=== PATIENT | female | born 1940 ===

== ENCOUNTER 2016-11-20 15:23 | Emergency (ER) | payer MEDICARE, BC ==
[2016-11-20 15:57] VITALS: BMI 39.8
--- NOTE | 2016-11-20 16:37 | ED PDOC ---
HPI: General Adult Time Seen by Provider: 11/20/16 15:56 Chief Complaint (Nursing): Abnormal Labs History Per: Patient History/Exam Limitations: no limitations Current Symptoms Are (Timing): Better Additional Complaint(s): Patient is a 76-year-old female, who is called back to the emergency department for high band neutrophil count. patient was seen in ER today (06:00) for nausea/ vomiting and diarrhea. She was discharged this morning for f/u with PMD. Patients labs returned, and were found to have a high band ct, resulting in her being called, and asked to return to ER for re-evaluation/possible admission. Patient states her symptoms have resolved, and she feels well. No other complaints at this time. Past Medical History Reviewed: Historical Data, Nursing Documentation, Vital Signs Vital Signs: Last Vital Signs Temp 97.6 F 11/20/16 16:37 Pulse 78 11/20/16 16:37 Resp 19 11/20/16 16:37 BP 128/76 11/20/16 16:37 Pulse Ox 96 11/20/16 18:03 - Family History Family History: States: Unknown Family Hx - Home Medications Home Medications: Ambulatory Orders Medication Instructions Recorded Anastrozole [Arimidex 1 mg Tab] 1 mg PO DAILY 11/20/16 Ciprofloxacin [Cipro] 500 mg PO Q12 11/20/16 metroNIDAZOLE [Flagyl] 500 mg PO Q8 11/20/16 - Allergies Allergies/Adverse Reactions: Allergies Allergy/AdvReac Type Severity Reaction Status Date / Time Penicillins Allergy RASH Verified 11/20/16 05:52 Review of Systems ROS Statement: Except As Marked, All Systems Reviewed And Found Negative Constitutional: Negative for: Fever, Chills Cardiovascular: Negative for: Chest Pain, Palpitations Respiratory: Negative for: Cough, Shortness of Breath Gastrointestinal: Negative for: Nausea, Vomiting, Abdominal Pain, Diarrhea Musculoskeletal: Negative for: Back Pain Skin: Negative for: Rash Physical Exam - Reviewed Nursing Documentation Reviewed: Yes Vital Signs Reviewed: Yes - Physical Exam Comments: Constitutional: No acute distress. Head: Normocephalic. Atraumatic. Eyes: PERRL. EOMI. ENT: Moist mucous membranes. Neck: Supple. Cardiovascular: Regular rate. Radial pulses 2+ bilaterally. Chest: No tenderness. Respiratory: Clear to auscultation bilaterally. GI: Soft. Nontender. Nondistended. No rebound or guarding. Back: No CVA tenderness. Musculoskeletal: No tenderness or swelling of extremities. Skin: No rash. Neurologic: Alert, no focal deficit. - Laboratory Results Result Diagrams: 11/20/16 16:40 11/20/16 16:40 - ECG O2 Sat by Pulse Oximetry: 96 Medical Decision Making Medical Decision Making: Impression: Patient is requesting repeat labs Prior Visits Notes and records from previous records were reviewed. Patient seen in ER this morning for GI distress. Patient discharged at 11:00. Plan: * CMP * CBC * Reassess and Disposition Scribe Attestation: Documented by Javi Allison acting as a scribe for Terrence Neri MD. Provider Attestation: All medical record entries made by the Scribe were at my direction and personally dictated by me. I have reviewed the chart and agree that the record accurately reflects my personal performance of the history, physical exam, medical decision making, and the department course for this patient. I have also personally directed, reviewed, and agree with the discharge instructions and disposition. Patient appears very well with normal vital signs and no abdominal tenderness. Repeated labs, leukocytosis improving, bicarb normal. Bands down to 6 from 12. Will discharge home, continue PO fluids, f/u PMD, return to ER for worsening pain, fever, vomiting, dyspnea. Disposition - Clinical Impression Clinical Impression: Vomiting and diarrhea - Patient ED Disposition Is Patient to be Admitted: No - Disposition Disposition: Routine/Home Disposition Time: 18:38 Condition: STABLE Instructions: Gastroenteritis (ED)
[2016-11-20 16:39] VITALS: BP 128/76; PULSE 78
[2016-11-20 16:53] LABS: BASO % 0.2 % (0.0-2.0); EOS % 0.3 % (0.0-4.0); HEMATOCRIT 35.8 % (34.0-47.0); LYMPH # 1.1 K/uL (1.0-4.3); LYMPH % 9.2 % (20.0-40.0); MEAN CELL VOLUME 75.3 fl (81.0-99.0); MEAN CORPUSCULAR HEMOGLOBIN 23.8 pg (27.0-31.0); MEAN CORPUSCULAR HGB CONC 31.6 g/dL (33.0-37.0); MEAN PLATELET VOLUME 9.7 fl (7.2-11.7); MONO # 0.6 K/uL (0.0-0.8); MONO % 5.1 % (0.0-10.0); NEUT # 9.8 K/uL (1.8-7.0); NEUT % 85.2 % (50.0-75.0); NRBC % 0.1 % (0.0-0.0); PLATELET COUNT 234 K/uL (130-400); RED CELL DISTRIBUTION WIDTH 16.2 % (11.5-14.5); WHITE BLOOD COUNT 11.5 K/uL (4.8-10.8)
[2016-11-20 16:59] LABS: ALB/GLOB RATIO 1.4 (1.0-2.1); ALKALINE PHOSPHATASE 90 U/L (38-126); ALT/SGPT 22 U/L (9-52); AST/SGOT 24 U/L (14-36); BILIRUBIN,TOTAL 0.5 mg/dl (0.2-1.3); BLOOD UREA NITROGEN 16 mg/dl (7-17); CALCIUM 8.6 mg/dL (8.4-10.2); CARBON DIOXIDE 22 mmol/L (22-30); CHLORIDE 105 mmol/L (98-107); GFR AFRICAN-AMERICAN > 60; GLUCOSE,RANDOM 106 mg/dL (65-105); SODIUM 139 mmol/l (132-148); TOTAL PROTEIN 6.5 G/DL (6.3-8.2)
[2016-11-20 18:31] LABS: MYELOCYTE 1 % (0-0); NEUTROPHIL 81 % (42-75); REACTIVE LYMPHOCYTES 2 % (0-0); TOTAL CELLS COUNTED 100
[2016-11-20 18:59] VITALS: RESP 20; TEMP 97.8; O2SAT 98
== END 2016-11-20 18:58 | disposition home or self-care (01) ==
LOC: H.ER 15:23
DX: R11.2 Nausea with vomiting, unspecified (principal); D72.829 Elevated white blood cell count, unspecified; R19.7 Diarrhea, unspecified
CPT/HCPCS: 80053; 82728; 83690; 85025; 85027; 96361; 96374; 99281; 99285; J2405; J7040

== ENCOUNTER 2017-09-12 07:47 | Emergency (ER) | payer MEDICARE, BC ==
[2017-09-12 07:47] VITALS: BMI 39.8
[2017-09-12 07:56] VITALS: RESP 20; TEMP 98; O2SAT 98
[2017-09-12] MEDS ORDERED: Sodium Chloride 0.9% 1,000 ML IV STA (08:16)
--- NOTE | 2017-09-12 08:20 | ED PDOC ---
HPI: Abdomen Time Seen by Provider: 09/12/17 08:02 Chief Complaint (Nursing): Abdominal Pain Chief Complaint (Provider): Abdominal Pain History Per: Patient History/Exam Limitations: no limitations Onset/Duration Of Symptoms: Days (x3), Intermittent Episodes Current Symptoms Are (Timing): Still Present Location Of Pain/Discomfort: Suprapubic Associated Symptoms: Nausea. denies: Fever, Vomiting, Diarrhea, Constipation, Urinary Symptoms (vaginal bleeding or discharge, dysuria) Additional Complaint(s): Deanna Oconnor is a 77 year old female, with a past medical history of breast CA, right mastectomy, and cholecystectomy, who presents to the emergency department complaining of intermittent lower abdominal pain associated with nausea onset for x3 days. She denies any fever, vomit, constipation, diarrhea, dysuria, vaginal bleeding or discharge. No further medical complaints. PMD: Michael Cotter Past Medical History Reviewed: Historical Data, Nursing Documentation, Vital Signs Vital Signs: Last Vital Signs Temp 98 F 09/12/17 07:53 Pulse 80 09/12/17 07:53 Resp 20 09/12/17 07:53 BP 111/84 09/12/17 07:53 Pulse Ox 98 09/12/17 08:31 - Medical History Other PMH: breast CA - Surgical History Surgical History: Cholecystectomy Other surgeries: right mastectomy - Family History Family History: States: Unknown Family Hx - Social History Current smoker - smoking cessation education provided: No Alcohol: None Drugs: Denies - Home Medications Home Medications: Ambulatory Orders Medication Instructions Recorded Dicyclomine [Bentyl] 20 mg PO QID PRN #10 tab 09/12/17 - Allergies Allergies/Adverse Reactions: Allergies Allergy/AdvReac Type Severity Reaction Status Date / Time Penicillins Allergy RASH Verified 11/20/16 05:52 Review of Systems ROS Statement: Except As Marked, All Systems Reviewed And Found Negative Constitutional: Negative for: Fever Gastrointestinal: Positive for: Nausea, Abdominal Pain (intermittent, lower). Negative for: Vomiting, Diarrhea, Constipation Genitourinary Female: Negative for: Dysuria, Vaginal Discharge, Vaginal Bleeding Physical Exam - Reviewed Nursing Documentation Reviewed: Yes Vital Signs Reviewed: Yes - Physical Exam Appears: Positive for: Well (morbidly obese), No Acute Distress Head Exam: Positive for: ATRAUMATIC, NORMAL INSPECTION, NORMOCEPHALIC Skin: Positive for: Normal Color, Warm, Dry Eye Exam: Positive for: EOMI, Normal appearance, PERRL Neck: Positive for: Normal, Painless ROM, Supple Cardiovascular/Chest: Positive for: Regular Rate, Rhythm. Negative for: Murmur Respiratory: Positive for: Normal Breath Sounds. Negative for: Respiratory Distress Gastrointestinal/Abdominal: Positive for: Tenderness (bilateral lower quadrant and suprapubic ). Negative for: Guarding, Rebound Back: Positive for: Normal Inspection. Negative for: L CVA Tenderness, R CVA Tenderness Extremity: Positive for: Normal ROM. Negative for: Pedal Edema, Deformity, Swelling Neurologic/Psych: Positive for: Alert, Oriented - Laboratory Results Result Diagrams: 09/12/17 08:15 09/12/17 08:15 - ECG O2 Sat by Pulse Oximetry: 98 (RA) Pulse Ox Interpretation: Normal Medical Decision Making Medical Decision Making: Initial Impression: UTI, appendicitis, ovarian cysts. Initial Plan: --Abd & Pelvis IV Contrast [CT] --ECG --Comp Metabolic Panel --Urine dipstick --PTT --PT --NS IV 1,000 ml @ 125 mls/hr --Zofran Inj 4 mg IV --Urinalysis --reevaluation Pt refused CT scan. Went to [employer] and ate food. Scribe Attestation: Documented by Johnny Laguna, acting as a scribe for Sindi Crow MD Provider Scribe Attestation: All medical record entries made by the Scribe were at my direction and personally dictated by me. I have reviewed the chart and agree that the record accurately reflects my personal performance of the history, physical exam, medical decision making, and the department course for this patient. I have also personally directed, reviewed, and agree with the discharge instructions and disposition. Disposition - Clinical Impression Clinical Impression: Abdominal pain in female - Disposition Referrals: Michael Cotter MD [Family Provider] - Condition: STABLE Prescriptions: Dicyclomine [Bentyl] 20 mg PO QID PRN #10 tab PRN Reason: Pain, Moderate (4-7) Instructions: Acute Abdominal Pain (ED) Forms: [employer] (Hong Konger)
[2017-09-12 08:25] LABS: BASO % 0.5 % (0.0-2.0); EOS # 0.2 K/uL (0.0-0.7); HEMATOCRIT 38.9 % (34.0-47.0); LYMPH # 1.7 K/uL (1.0-4.3); LYMPH % 18.2 % (20.0-40.0); MEAN CELL VOLUME 74.7 fl (81.0-99.0); MEAN CORPUSCULAR HEMOGLOBIN 24.2 pg (27.0-31.0); MEAN CORPUSCULAR HGB CONC 32.3 g/dL (33.0-37.0); MEAN PLATELET VOLUME 8.4 fl (7.2-11.7); MONO # 0.6 K/uL (0.0-0.8); MONO % 5.9 % (0.0-10.0); NEUT % 73.4 % (50.0-75.0); NRBC % 0.1 % (0.0-0.0); RED CELL DISTRIBUTION WIDTH 16.8 % (11.5-14.5); WHITE BLOOD COUNT 9.5 K/uL (4.8-10.8)
[2017-09-12 08:40] LABS: PARTIAL THROMBOPLASTIN TIME 26.2 Seconds (25.6-37.1)
[2017-09-12 08:43] LABS: ALB/GLOB RATIO 1.3 (1.0-2.1); ALKALINE PHOSPHATASE 92 U/L (38-126); ALT/SGPT 40 U/L (9-52); AST/SGOT 22 U/L (14-36); BILIRUBIN,TOTAL 0.4 mg/dl (0.2-1.3); BLOOD UREA NITROGEN 13 mg/dl (7-17); CALCIUM 9.4 mg/dL (8.4-10.2); CARBON DIOXIDE 23 mmol/L (22-30); CHLORIDE 105 mmol/L (98-107); GFR AFRICAN-AMERICAN > 60; GLUCOSE,RANDOM 135 mg/dL (65-105); SODIUM 139 mmol/l (132-148); TOTAL PROTEIN 6.9 G/DL (6.3-8.2)
[2017-09-12] MEDS ORDERED: Iohexol 300 100 ML IJ ONE (09:07)
[2017-09-12 09:16] LABS: RBC URINE 1 /hpf (0-3); URINE BILIRUBIN NEGATIVE (NEGATIVE); URINE BLOOD NEGATIVE (NEGATIVE); URINE COLOR YELLOW (YELLOW); URINE GLUCOSE (UA) NEG (Normal); URINE KETONE NEGATIVE (NEGATIVE); URINE LEUKOCYTE ESTERASE NEG Leu/uL (Negative); URINE PROTEIN 30 mg/dL (NEGATIVE); URINE UROBILINOGEN 0.2-1.0 mg/dL (0.2-1.0); WBC URINE 1 /hpf (0-5)
[2017-09-12 11:52] VITALS: BP 120/70; PULSE 78
--- NOTE | 2017-09-13 00:19 | CARD ---
APPROVED REPORT EKG Measurement Heart [id number] 146P-9 [id number] <Conclusion> Normal sinus rhythm Left axis deviation Abnormal ECG
== END 2017-09-12 12:24 | disposition home or self-care (01) ==
LOC: H.ER 07:47
DX: R10.2 Pelvic and perineal pain (principal); Z85.3 Personal history of malignant neoplasm of breast; Z88.0 Allergy status to penicillin
CPT/HCPCS: 80053; 81003; 85025; 85610; 85730; 93005; 96361; 96374; 99283; J2405; J7040; Q9967

== ENCOUNTER 2018-08-01 19:58 | Emergency (ER) | payer MEDICARE, BC ==
[2018-08-01 19:58] VITALS: BMI 39.8
[2018-08-01 20:01] VITALS: BP 147/98; PULSE 80; RESP 16; TEMP 97.9; O2SAT 99
--- NOTE | 2018-08-01 21:29 | ED PDOC ---
HPI: Psych/Substance Abuse Time Seen by Provider: 08/01/18 20:04 Chief Complaint (Nursing): Psychiatric Evaluation Chief Complaint (Provider): psychiatric evaluation History Per: Patient History/Exam Limitations: no limitations Onset/Duration Of Symptoms: Hrs (today) Additional Complaint(s): Ana Oconnor is a 78 year old female, with a past medical history of Alzheimer's disease, who was brought to the emergency department at the request of her friend who state she became agitated at home and was behaving somewhat paranoid. She was given an extra dose of Lorazepam which she takes TID. On arrival to ED patient was calm and cooperative but resentful at being made to come to the hospital. She denies any other medical complaints. PMD: Michael Cotter Neurologist: Dr. Barrios Past Medical History Reviewed: Historical Data, Nursing Documentation, Vital Signs Vital Signs: Last Vital Signs Temp 97.9 F 08/01/18 20:00 Pulse 80 08/01/18 20:00 Resp 16 08/01/18 20:00 BP 147/98 H 08/01/18 20:00 Pulse Ox 99 08/01/18 20:00 - Medical History PMH: Alzheimer's Disease Denies: HTN, Hypercholesterolemia - Surgical History Surgical History: Cholecystectomy - Family History Family History: States: Unknown Family Hx - Social History Current smoker - smoking cessation education provided: No Alcohol: None Drugs: Denies - Home Medications Home Medications: Ambulatory Orders Medication Instructions Recorded Dicyclomine [Bentyl] 20 mg PO QID PRN #10 tab 09/12/17 - Allergies Allergies/Adverse Reactions: Allergies Allergy/AdvReac Type Severity Reaction Status Date / Time Penicillins Allergy RASH Verified 11/20/16 05:52 Review of Systems ROS Statement: Except As Marked, All Systems Reviewed And Found Negative Physical Exam - Reviewed Nursing Documentation Reviewed: Yes Vital Signs Reviewed: Yes - Physical Exam Appears: Positive for: No Acute Distress Head Exam: Positive for: ATRAUMATIC, NORMAL INSPECTION, NORMOCEPHALIC Skin: Positive for: Normal Color, Warm, Dry Eye Exam: Positive for: Normal appearance, EOMI, PERRL ENT: Positive for: Normal ENT Inspection Neck: Positive for: Painless ROM, Supple Cardiovascular/Chest: Positive for: Regular Rate, Rhythm. Negative for: Murmur Respiratory: Positive for: Normal Breath Sounds. Negative for: Respiratory Distress Gastrointestinal/Abdominal: Positive for: Normal Exam, Soft. Negative for: Tenderness Back: Positive for: Normal Inspection. Negative for: L CVA Tenderness, R CVA Tenderness, Vertebral Tenderness Extremity: Positive for: Normal ROM (upper and lower extremities). Negative for: Deformity, Swelling Neurologic/Psych: Positive for: Alert, Oriented. Negative for: Motor/Sensory Deficits - ECG O2 Sat by Pulse Oximetry: 99 (RA) Pulse Ox Interpretation: Normal Medical Decision Making Medical Decision Making: Time: 20:04 Initial Impression: 78 y/o female with an episode of agitation in setting of Alzheimer's disease Initial Plan: --Crisis evaluation --Reevaluation 22:58 --Patient was evaluated by crisis and is cleared for discharge. Diagnosis is dementia. ----- Scribe Attestation: Documented by Johnny Laguna, acting as a scribe for Baldev Castillo MD. Provider Scribe Attestation: All medical record entries made by the Scribe were at my direction and personally dictated by me. I have reviewed the chart and agree that the record accurately reflects my personal performance of the history, physical exam, medical decision making, and the department course for this patient. I have also personally directed, reviewed, and agree with the discharge instructions and disposition. Disposition - Clinical Impression Clinical Impression: Dementia - Patient ED Disposition Is Patient to be Admitted: No - Disposition Disposition: Routine/Home Disposition Time: 22:58 Condition: STABLE Additional Instructions: ANA OCONNOR, thank you for letting us take care of you today. Your provider was Baldev Castillo MD and you were treated for PSYCH EVAL. The emergency medical care you received today was directed at your acute symptoms. If you were prescribed any medication, please fill it and take as directed. It may take several days for your symptoms to resolve. Return to the Emergency Department if your symptoms worsen, do not improve, or if you have any other problems. Please contact your doctor or call one of the physicians/clinics you have been referred to that are listed on the Patient Visit Information form that is included in your discharge packet. Bring any paperwork you were given at discharge with you along with any medications you are taking to your follow up visit. Our treatment cannot replace ongoing medical care by a primary care provider outside of the emergency department. Thank you for allowing the [facility] team to be part of your care today. If you had an X-Ray or CT scan: A Radiologist will review the ED reading if any change in treatment is needed we will contact you. If you had a blood, urine, or wound culture: It will take several days for the results, if any change in treatment is needed we will contact you. If you had an STI test: It will take 48 hours for the results. Please call after 1 week if you have not heard back. Instructions: Dementia (Including Alzheimer Disease) Forms: [employer] (Jordanian)
== END 2018-08-01 23:02 | disposition home or self-care (01) ==
LOC: H.ER 19:58
DX: F02.80 Dementia in other diseases classified elsewhere, unspecified severity, without behavioral disturbance, psychotic disturbance, mood disturbance, and anxiety (principal); G30.9 Alzheimer's disease, unspecified; Z88.0 Allergy status to penicillin

== ENCOUNTER 2018-09-06 10:31 | Inpatient (IN) | payer MEDICARE, BC ==
[2018-09-06 10:48] VITALS: BMI 31.8
--- NOTE | 2018-09-06 11:07 | ED PDOC ---
HPI: General Adult Time Seen by Provider: 09/06/18 10:41 History Per: Other Onset/Duration Of Symptoms: Other (1 month) Current Symptoms Are (Timing): Intermittent Episodes Severity: Moderate Additional Complaint(s): Referred by PMD for intermittent episodes of confusion and violent behavior. Pt has no recollection of events. Seen by PMD with w/u including CT nl. Started on Keppra but no improvement. Denies headaches weakness, no witnessed seizures Past Medical History Vital Signs: Last Vital Signs Temp 98.4 F 09/06/18 10:49 Pulse 85 09/06/18 10:49 Resp 17 09/06/18 10:49 BP 127/71 09/06/18 10:49 Pulse Ox 96 09/06/18 10:49 - Medical History PMH: Alzheimer's Disease Denies: Diabetes, Hepatitis, HIV, HTN, Hypercholesterolemia, Seizures, Sexually Transmitted Disease - Surgical History Surgical History: Cholecystectomy - Family History Family History: States: Unknown Family Hx - Home Medications Home Medications: Ambulatory Orders Medication Instructions Recorded LORazepam [Ativan] 0.5 mg PO Q8 09/06/18 levETIRAcetam [Keppra] 250 mg PO HS 09/06/18 - Allergies Allergies/Adverse Reactions: Allergies Allergy/AdvReac Type Severity Reaction Status Date / Time Penicillins Allergy RASH Verified 11/20/16 05:52 Review of Systems ROS Statement: Except As Marked, All Systems Reviewed And Found Negative Neurological: Positive for: Confusion, Altered Mental Status Physical Exam - Reviewed Nursing Documentation Reviewed: Yes Vital Signs Reviewed: Yes - Physical Exam Appears: Positive for: Non-toxic, No Acute Distress Head Exam: Positive for: ATRAUMATIC, NORMAL INSPECTION, NORMOCEPHALIC Skin: Positive for: Normal Color, Warm, DRY Eye Exam: Positive for: EOMI, Normal appearance, PERRL ENT: Positive for: Normal ENT Inspection Neck: Positive for: Normal, Painless ROM Cardiovascular/Chest: Positive for: Regular Rate, Rhythm Respiratory: Positive for: CNT, Normal Breath Sounds Gastrointestinal/Abdominal: Positive for: Normal Exam, Soft Back: Positive for: Normal Inspection Extremity: Positive for: Normal ROM Neurologic/Psych: Positive for: Alert, Oriented - Laboratory Results Result Diagrams: 09/06/18 11:56 09/06/18 11:56 - ECG O2 Sat by Pulse Oximetry: 96 Disposition - Clinical Impression Clinical Impression: Dementia, Altered mental status - Patient ED Disposition Is Patient to be Admitted: Yes - Disposition Disposition Time: 11:13 Condition: FAIR - Pt Status Changed To: Hospital Disposition Of: Observation - POA Present On Arrival: None
[2018-09-06 12:09] LABS: BASO # 0.1 K/uL (0.0-0.2); BASO % 0.6 % (0.0-2.0); EOS # 0.4 K/uL (0.0-0.7); EOS % 3.8 % (0.0-4.0); HEMOGLOBIN 12.3 g/dL (12.0-16.0); LYMPH # 2.2 K/uL (1.0-4.3); LYMPH % 21.8 % (20.0-40.0); MEAN CELL VOLUME 77.3 fl (81.0-99.0); MEAN CORPUSCULAR HGB CONC 32.4 g/dL (33.0-37.0); MEAN PLATELET VOLUME 9.6 fl (7.2-11.7); MONO # 0.6 K/uL (0.0-0.8); MONO % 5.8 % (0.0-10.0); NEUT # 6.9 K/uL (1.8-7.0); NRBC % 0.2 % (0.0-0.0); RBC 4.91 Mil/uL (3.80-5.20); RED CELL DISTRIBUTION WIDTH 15.5 % (11.5-14.5); WHITE BLOOD COUNT 10.1 K/uL (4.8-10.8)
[2018-09-06 12:16] LABS: SQUAMOUS EPITHIAL 6 /hpf (0-5); URINE BILIRUBIN NEGATIVE (NEGATIVE); URINE BLOOD NEGATIVE (NEGATIVE); URINE CLARITY SLIGHTY-CLOUDY (Clear); URINE COLOR YELLOW (YELLOW); URINE GLUCOSE (UA) NEG (Normal); URINE HYALINE CAST 0-2 /hpf (0-2); URINE LEUKOCYTE ESTERASE SMALL Leu/uL (Negative); URINE PROTEIN NEGATIVE (NEGATIVE); URINE UROBILINOGEN 0.2-1.0 mg/dL (0.2-1.0)
[2018-09-06 12:19] LABS: ALB/GLOB RATIO 1.4 (1.0-2.1); ALBUMIN 3.7 g/dL (3.5-5.0); ALT/SGPT 32 U/L (9-52); AST/SGOT 21 U/L (14-36); BLOOD UREA NITROGEN 16 mg/dl (7-17); CALCIUM 9.1 mg/dL (8.4-10.2); GFR NON-AFRICAN AMERICAN > 60
[2018-09-06] MEDS ORDERED: Tmp-Smz 800 mg-160 mg DS Tab PO STA (12:22)
[2018-09-06 13:16] LABS: BARBITURATES, UR NEGATIVE (NEGATIVE); BENZODIAZEPINES, UR NEGATIVE (NEGATIVE); OPIATES, UR NEGATIVE (NEGATIVE); PHENCYCLIDINE, UR NEGATIVE (NEGATIVE)
[2018-09-06] MEDS ORDERED: Tmp-Smz 800 mg-160 mg DS Tab ONE (13:38)
[2018-09-06 15:46] LABS: T4 10.4 ug/dl (5.5-11.0)
--- NOTE | 2018-09-06 16:14 | MRI ---
Date of service: 09/06/2018 PROCEDURE: MRI BRAIN WITHOUT CONTRAST HISTORY: AMS COMPARISON: None available. TECHNIQUE: Multiplanar, multisequence MR images of the brain were obtained without intravenous contrast enhancement. FINDINGS: HEMORRHAGE: None DWI: No evidence of an acute or early subacute infarction. BRAIN PARENCHYMA: There are mild chronic microangiopathic changes. There is no mass, mass effect or abnormal extra-axial fluid collection. There is no territorial infarction. The midline sagittal structures are normal. VENTRICLES: There is moderate age-related global parenchymal volume loss and proportionate enlargement of the ventricles and cortical sulci. CRANIUM: There is normal bone marrow signal pattern. ORBITS: Grossly unremarkable. PARANASAL SINUSES/MASTOIDS: There is mild mucosal thickening and retention cyst/polyp in the left maxillary sinus with superimposed fluid. The remaining included paranasal sinuses and mastoid air cells are predominantly clear. VASCULAR SYSTEM: There are normal signal voids in the larger intracranial arteries. OTHER FINDINGS: None. IMPRESSION: No acute intracranial abnormality. Mild chronic microangiopathic changes and moderate age-related global parenchymal volume loss. Chronic left maxillary sinusitis. Superimposed fluid may represent acute sinusitis in the appropriate clinical setting. Clinical follow-up is advised.
--- NOTE | 2018-09-06 19:35 | CARD ---
APPROVED REPORT Date of service: 09/06/2018 EKG Measurement Heart [id number] 150P-2 [id number] <Conclusion> Normal sinus rhythm Left axis deviation Incomplete right bundle branch block Minimal voltage criteria for LVH, may be normal variant Abnormal ECG
--- NOTE | 2018-09-06 22:58 | CON ---
DATE: 09/06/2018 NEUROLOGY CONSULTATION REPORT REASON FOR CONSULTATION: Change in mental status. HISTORY OF PRESENTING ILLNESS: The patient is a 78-year-old female with a history of underlying dementia who presents for evaluation of altered mental status. The patient is brought by her friend. As per the friend, the patient has been hallucinating. The patient's friend states that she has been seeing things which are not there. It has been going on for the last few weeks, and now it is getting worse over the last couple of days. The patient denies any headaches. Denies any dizziness. Denies any focal weakness in the arms or legs. Denies use of any new medications. The patient was given Keppra for possible seizure; however, it did not improve her symptoms. The patient denied any other complaints. REVIEW OF SYSTEMS: Denied any headaches, dizziness, chest pain, shortness of breath, abdominal pain, constipation, diarrhea, dysuria, cough, or sputum production. PAST MEDICAL HISTORY: Includes memory issues with dementia. MEDICATIONS: At home include Ativan 0.5 mg three times a day and Keppra 250 mg at nighttime. ALLERGIES: PENICILLIN. SOCIAL HISTORY: Denies smoking, use of alcohol, or illicit drugs. FAMILY HISTORY: Reviewed and noncontributory to the case. PHYSICAL EXAMINATION: GENERAL: The patient is an elderly pleasant female, lying on the bed, in no acute distress. VITAL SIGNS: Her blood pressure is 127/71, heart rate is 85 per minute, breathing at a rate of 16 per minute, and temperature is 98.4 degrees Fahrenheit. HEENT: Normocephalic and atraumatic. NECK: Supple. There are no carotid bruits. LUNGS: Clear. CARDIOVASCULAR SYSTEM: S1 and S2 audible. No murmurs. ABDOMEN: Soft and nontender. Bowel sounds are present. NEUROLOGIC EXAMINATION: Mental status: The patient is awake and alert, oriented to place as hospital, year as 2010, month as June. She knows the name of the President. She follows simple commands. Cranial nerve examination: Pupils are 4 mm bilaterally, reactive to light. Visual escalante are full. Extraocular movements are intact. There is no facial asymmetry. Plantars are downgoing bilaterally and tongue is midline. Motor examination: Tone is normal. Power is 5/5 bilaterally in all extremities. Reflexes are 1+ and symmetric. Cerebellar examination: [id number] shows no dysmetria. Gait is narrow based. LABORATORY DATA: Labs review shows WBC of 10.1, hemoglobin 12.3, and hematocrit of 38, and platelets of 240. Sodium is 139, potassium is 3.8, chloride 108, carbo dioxide content of 23, BUN of 16, creatinine 0.6, and glucose of 161. Her AST and ALT are within normal limits. The patient also had urinalysis, which shows wbc count of 12 and leukocyte esterase small. IMPRESSION: 1. Altered mental status with underlying dementia with possible urinary tract infection. 2. Visual hallucinations. RECOMMENDATIONS: 1. The patient is to have MRI of the brain without contrast. 2. The patient is to have an electroencephalogram. 3. The patient is to have vitamin B12, T4, and TSH levels. 4. The patient is to be started on Aricept 5 mg once a day. 5. The patient is also to be started on low dose of Seroquel with hallucinations. 6. Please continue supportive care and treatment. Thank you for the opportunity to participate in the care of this patient. Tari Andrea MD
--- NOTE | 2018-09-06 23:44 | CP.PCM.HP ---
History of Present Illness - History of Present Illness History of Present Illness: 78 yo admitted for change in mental status Pt has had episodes of erratic behavior. She recently was seen by Neurology as outpt and started on anti seizure medications which pt was unable to tolerate Pt has hx of episodes of amnesia. Ct scan of Head was WNL Present on Admission - Present on Admission Any Indicators Present on Admission: No Past Patient History - Past Social History Smoking Status: Never Smoked - CARDIAC Hx Cardiac Disorders: No Hx Hypercholesterolemia: No Hx Hypertension: No - PULMONARY Hx Respiratory Disorders: No Hx Tuberculosis: No - NEUROLOGICAL Hx Neurological Disorder: Yes Hx Alzheimer's Disease: Yes Hx Seizures: No - HEENT Hx HEENT Problems: No - RENAL Hx Chronic Kidney Disease: No - ENDOCRINE/METABOLIC Hx Endocrine Disorders: No - HEMATOLOGICAL/ONCOLOGICAL Hx Blood Disorders: No Hx Human Immunodeficiency Virus (HIV): No - INTEGUMENTARY Hx Dermatological Problems: No - MUSCULOSKELETAL/RHEUMATOLOGICAL Hx Musculoskeletal Disorders: No Hx Falls: No - GASTROINTESTINAL Hx Gastrointestinal Disorders: No - GENITOURINARY/GYNECOLOGICAL Hx Genitourinary Disorders: No Hx Sexually Transmitted Disorders: No - PSYCHIATRIC Hx Psychophysiologic Disorder: No Hx Substance Use: No - SURGICAL HISTORY Hx Cholecystectomy: Yes - ANESTHESIA Hx Anesthesia: Yes Hx Anesthesia Reactions: No Hx Malignant Hyperthermia: No Meds Allergies/Adverse Reactions: Allergies Allergy/AdvReac Type Severity Reaction Status Date / Time Penicillins Allergy RASH Verified 11/20/16 05:52 Physical Exam - Respiratory Exam Respiratory Exam: NORMAL BREATHING PATTERN - Cardiovascular Exam Cardiovascular Exam: REGULAR RHYTHM - GI/Abdominal Exam GI & Abdominal Exam: Normal Bowel Sounds Results - Vital Signs Recent Vital Signs: Last Vital Signs Temp 98 F 09/06/18 20:54 Pulse 74 09/06/18 22:43 Resp 18 09/06/18 22:43 BP 155/83 H 09/06/18 20:54 Pulse Ox 98 09/06/18 22:43 - Labs Result Diagrams: 09/06/18 11:56 09/06/18 11:56 Labs: Laboratory Results - last 24 hr 09/06/18 09/06/18 09/06/18 11:56 11:56 11:56 WBC 10.1 RBC 4.91 Hgb 12.3 Hct 38.0 MCV 77.3 L D MCH 25.0 L MCHC 32.4 L RDW 15.5 H Plt Count 240 MPV 9.6 Neut % (Auto) 68.0 Lymph % (Auto) 21.8 [place] % (Auto) 5.8 Eos % (Auto) 3.8 Baso % (Auto) 0.6 Neut # (Auto) 6.9 Lymph # (Auto) 2.2 [place] # (Auto) 0.6 Eos # (Auto) 0.4 Baso # (Auto) 0.1 Sodium 139 Potassium 3.8 Chloride 108 H Carbon Dioxide 23 Anion Gap 12 BUN 16 Creatinine 0.6 L Est GFR ( Amer) > 60 Est GFR (Non-Af Amer) > 60 Random Glucose 161 H Calcium 9.1 Total Bilirubin 0.1 L AST 21 ALT 32 Alkaline Phosphatase 92 Total Protein 6.4 Albumin 3.7 Globulin 2.7 Albumin/Globulin Ratio 1.4 Vitamin B12 Thyroxine (T4) TSH 3rd Generation Urine Color Yellow Urine Clarity Slighty-cloudy Urine pH 5.0 Ur Specific [place] 1.026 Urine Protein Negative Urine Glucose (UA) Neg Urine Ketones Negative Urine Blood Negative Urine Nitrate Negative Urine Bilirubin Negative Urine Urobilinogen 0.2-1.0 Ur Leukocyte Esterase Small Urine RBC (Auto) 4 H Urine Microscopic WBC 12 H Ur Squamous Epith Cells 6 H Hyaline Casts 0-2 Urine Opiates Screen Urine Methadone Screen Ur Barbiturates Screen Ur Phencyclidine Scrn Ur Amphetamines Screen U Benzodiazepines Scrn U Oth Cocaine Metabols U Cannabinoids Screen Alcohol, Quantitative < 10 09/06/18 09/06/18 12:40 15:10 WBC RBC Hgb Hct MCV MCH MCHC RDW Plt Count MPV Neut % (Auto) Lymph % (Auto) [place] % (Auto) Eos % (Auto) Baso % (Auto) Neut # (Auto) Lymph # (Auto) [place] # (Auto) Eos # (Auto) Baso # (Auto) Sodium Potassium Chloride Carbon Dioxide Anion Gap BUN Creatinine Est GFR ( Amer) Est GFR (Non-Af Amer) Random Glucose Calcium Total Bilirubin AST ALT Alkaline Phosphatase Total Protein Albumin Globulin Albumin/Globulin Ratio Vitamin B12 690 Thyroxine (T4) 10.4 TSH 3rd Generation 1.76 Urine Color Urine Clarity Urine pH Ur Specific [place] Urine Protein Urine Glucose (UA) Urine Ketones Urine Blood Urine Nitrate Urine Bilirubin Urine Urobilinogen Ur Leukocyte Esterase Urine RBC (Auto) Urine Microscopic WBC Ur Squamous Epith Cells Hyaline Casts Urine Opiates Screen Negative Urine Methadone Screen Negative Ur Barbiturates Screen Negative Ur Phencyclidine Scrn Negative Ur Amphetamines Screen Negative U Benzodiazepines Scrn Negative U Oth Cocaine Metabols Negative U Cannabinoids Screen Negative Alcohol, Quantitative Assessment & Plan - Assessment and Plan (Free Text) Assessment: Mental status changes etiol?? Organic vs fuctional?? Seizure activity?? Transient global Amnesia?? Admit MRI EEG Neurology Psychiatry HX Breast Ca Hx Fe deficiency ??elevated CEA Oncology UTI urine c/s - Date & Time Date: 09/06/18 Time: 22:22
[2018-09-07 06:13] LABS: BASO % 0.5 % (0.0-2.0); EOS # 0.4 K/uL (0.0-0.7); EOS % 4.8 % (0.0-4.0); HEMOGLOBIN 11.9 g/dL (12.0-16.0); LYMPH # 2.7 K/uL (1.0-4.3); LYMPH % 29.5 % (20.0-40.0); MEAN CELL VOLUME 77.8 fl (81.0-99.0); MEAN CORPUSCULAR HEMOGLOBIN 24.6 pg (27.0-31.0); MEAN CORPUSCULAR HGB CONC 31.7 g/dL (33.0-37.0); MEAN PLATELET VOLUME 9.5 fl (7.2-11.7); MONO # 0.6 K/uL (0.0-0.8); MONO % 6.6 % (0.0-10.0); NEUT # 5.3 K/uL (1.8-7.0); NEUT % 58.6 % (50.0-75.0); NRBC % 0.1 % (0.0-0.0); RBC 4.84 Mil/uL (3.80-5.20); RED CELL DISTRIBUTION WIDTH 15.1 % (11.5-14.5)
[2018-09-07 06:25] LABS: LDL CHOLESTEROL 103 mg/dL (0-129)
[2018-09-07 06:45] LABS: ALB/GLOB RATIO 1.3 (1.0-2.1); ALBUMIN 3.3 g/dL (3.5-5.0); ALT/SGPT 39 U/L (9-52); AST/SGOT 17 U/L (14-36); BLOOD UREA NITROGEN 14 mg/dl (7-17); CALCIUM 8.7 mg/dL (8.4-10.2); GFR NON-AFRICAN AMERICAN > 60; HDL CHOLESTEROL 55 MG/DL (30-70)
--- NOTE | 2018-09-07 11:03 | CP.PCM.CON ---
History of Present Illness - History of Present Illness History of Present Illness: This is a 78 yrs old female who was admitted with change in mental status. Pt as some episodes of forgetfulness and occasional violent episodes which are getting worse. She has a h/o breast cancer several yrs ago for which she only had surgery,no RT or chemotherapy. S he has been alright since. Because of this history metastatic disease was suspected and she was started on keppra. Her MRI however only shows some chronic changes, no evidence of metastatic disease. H/o cholecystectomy Past Patient History - Past Social History Smoking Status: Never Smoked - CARDIAC Hx Cardiac Disorders: No Hx Hypercholesterolemia: No Hx Hypertension: No - PULMONARY Hx Respiratory Disorders: No Hx Tuberculosis: No - NEUROLOGICAL Hx Neurological Disorder: Yes Hx Alzheimer's Disease: Yes Hx Seizures: No - HEENT Hx HEENT Problems: No - RENAL Hx Chronic Kidney Disease: No - ENDOCRINE/METABOLIC Hx Endocrine Disorders: No - HEMATOLOGICAL/ONCOLOGICAL Hx Blood Disorders: No Hx Human Immunodeficiency Virus (HIV): No - INTEGUMENTARY Hx Dermatological Problems: No - MUSCULOSKELETAL/RHEUMATOLOGICAL Hx Musculoskeletal Disorders: No Hx Falls: No - GASTROINTESTINAL Hx Gastrointestinal Disorders: No - GENITOURINARY/GYNECOLOGICAL Hx Genitourinary Disorders: No Hx Sexually Transmitted Disorders: No - PSYCHIATRIC Hx Psychophysiologic Disorder: No Hx Substance Use: No - SURGICAL HISTORY Hx Cholecystectomy: Yes - ANESTHESIA Hx Anesthesia: Yes Hx Anesthesia Reactions: No Hx Malignant Hyperthermia: No Meds Allergies/Adverse Reactions: Allergies Allergy/AdvReac Type Severity Reaction Status Date / Time Penicillins Allergy RASH Verified 11/20/16 05:52 - Medications Medications: Current Medications Lorazepam (Ativan) 0.5 mg PO BID [facility] Last Admin: 09/07/18 09:51 Dose: 0.5 mg Memantine (Namenda) 5 mg PO DAILY [facility] Last Admin: 09/07/18 09:52 Dose: 5 mg Montelukast Sodium (Singulair) 10 mg PO HS [facility] Risperidone (Risperdal Tab) 0.5 mg PO BID [facility] Last Admin: 09/07/18 10:00 Dose: 0.5 mg Physical Exam - Additional Findings Additional findings: [id number] exam; Alert well oriented in no acute distress neck; Supple,no adenopathy Chest; lear, no rales or rhonchi Heart; RSR,no murmur Abd; Soft, no mass, no h/s mealy Results - Vital Signs Recent Vital Signs: Last Vital Signs Temp 98.0 F 09/07/18 08:18 Pulse 80 09/07/18 08:18 Resp 20 09/07/18 08:18 BP 110/72 09/07/18 08:18 Pulse Ox 95 09/07/18 08:18 - Labs Result Diagrams: 09/07/18 05:55 09/07/18 05:55 Labs: Laboratory Results - last 24 hr 09/06/18 09/06/18 09/06/18 11:56 11:56 11:56 WBC 10.1 RBC 4.91 Hgb 12.3 Hct 38.0 MCV 77.3 L D MCH 25.0 L MCHC 32.4 L RDW 15.5 H Plt Count 240 MPV 9.6 Neut % (Auto) 68.0 Lymph % (Auto) 21.8 [place] % (Auto) 5.8 Eos % (Auto) 3.8 Baso % (Auto) 0.6 Neut # (Auto) 6.9 Lymph # (Auto) 2.2 [place] # (Auto) 0.6 Eos # (Auto) 0.4 Baso # (Auto) 0.1 Sodium 139 Potassium 3.8 Chloride 108 H Carbon Dioxide 23 Anion Gap 12 BUN 16 Creatinine 0.6 L Est GFR ( Amer) > 60 Est GFR (Non-Af Amer) > 60 Random Glucose 161 H Calcium 9.1 Total Bilirubin 0.1 L AST 21 ALT 32 Alkaline Phosphatase 92 Total Protein 6.4 Albumin 3.7 Globulin 2.7 Albumin/Globulin Ratio 1.4 Triglycerides Cholesterol LDL Cholesterol Direct HDL Cholesterol Carcinoembryonic Ag Vitamin B12 Thyroxine (T4) TSH 3rd Generation Urine Color Yellow Urine Clarity Slighty-cloudy Urine pH 5.0 Ur Specific [place] 1.026 Urine Protein Negative Urine Glucose (UA) Neg Urine Ketones Negative Urine Blood Negative Urine Nitrate Negative Urine Bilirubin Negative Urine Urobilinogen 0.2-1.0 Ur Leukocyte Esterase Small Urine RBC (Auto) 4 H Urine Microscopic WBC 12 H Ur Squamous Epith Cells 6 H Hyaline Casts 0-2 Urine Opiates Screen Urine Methadone Screen Ur Barbiturates Screen Ur Phencyclidine Scrn Ur Amphetamines Screen U Benzodiazepines Scrn U Oth Cocaine Metabols U Cannabinoids Screen Alcohol, Quantitative < 10 09/06/18 09/06/18 09/07/18 12:40 15:10 05:55 WBC 9.0 RBC 4.84 Hgb 11.9 L Hct 37.6 MCV 77.8 L MCH 24.6 L MCHC 31.7 L RDW 15.1 H Plt Count 227 MPV 9.5 Neut % (Auto) 58.6 Lymph % (Auto) 29.5 [place] % (Auto) 6.6 Eos % (Auto) 4.8 H Baso % (Auto) 0.5 Neut # (Auto) 5.3 Lymph # (Auto) 2.7 [place] # (Auto) 0.6 Eos # (Auto) 0.4 Baso # (Auto) 0.0 Sodium Potassium Chloride Carbon Dioxide Anion Gap BUN Creatinine Est GFR ( Amer) Est GFR (Non-Af Amer) Random Glucose Calcium Total Bilirubin AST ALT Alkaline Phosphatase Total Protein Albumin Globulin Albumin/Globulin Ratio Triglycerides Cholesterol LDL Cholesterol Direct HDL Cholesterol Carcinoembryonic Ag Vitamin B12 690 Thyroxine (T4) 10.4 TSH 3rd Generation 1.76 Urine Color Urine Clarity Urine pH Ur Specific [place] Urine Protein Urine Glucose (UA) Urine Ketones Urine Blood Urine Nitrate Urine Bilirubin Urine Urobilinogen Ur Leukocyte Esterase Urine RBC (Auto) Urine Microscopic WBC Ur Squamous Epith Cells Hyaline Casts Urine Opiates Screen Negative Urine Methadone Screen Negative Ur Barbiturates Screen Negative Ur Phencyclidine Scrn Negative Ur Amphetamines Screen Negative U Benzodiazepines Scrn Negative U Oth Cocaine Metabols Negative U Cannabinoids Screen Negative Alcohol, Quantitative 09/07/18 05:55 WBC RBC Hgb Hct MCV MCH MCHC RDW Plt Count MPV Neut % (Auto) Lymph % (Auto) [place] % (Auto) Eos % (Auto) Baso % (Auto) Neut # (Auto) Lymph # (Auto) [place] # (Auto) Eos # (Auto) Baso # (Auto) Sodium 138 Potassium 4.1 Chloride 107 Carbon Dioxide 24 Anion Gap 11 BUN 14 Creatinine 0.7 Est GFR ( Amer) > 60 Est GFR (Non-Af Amer) > 60 Random Glucose 111 H Calcium 8.7 Total Bilirubin 0.2 AST 17 ALT 39 Alkaline Phosphatase 83 Total Protein 6.0 L Albumin 3.3 L Globulin 2.6 Albumin/Globulin Ratio 1.3 Triglycerides 121 Cholesterol 168 LDL Cholesterol Direct 103 HDL Cholesterol 55 Carcinoembryonic Ag 3.3 H Vitamin B12 Thyroxine (T4) TSH 3rd Generation 2.86 Urine Color Urine Clarity Urine pH Ur Specific [place] Urine Protein Urine Glucose (UA) Urine Ketones Urine Blood Urine Nitrate Urine Bilirubin Urine Urobilinogen Ur Leukocyte Esterase Urine RBC (Auto) Urine Microscopic WBC Ur Squamous Epith Cells Hyaline Casts Urine Opiates Screen Urine Methadone Screen Ur Barbiturates Screen Ur Phencyclidine Scrn Ur Amphetamines Screen U Benzodiazepines Scrn U Oth Cocaine Metabols U Cannabinoids Screen Alcohol, Quantitative Assessment & Plan - Assessment and Plan (Free Text) Assessment: Change in mental status. No evidence of metastatic disease. her CEA is slightly elevated by .3 but not significant. Can be followed up q 2-3 [facility]. Impression; - Date & Time Date: 09/07/18 Time: 11:20
--- NOTE | 2018-09-07 19:38 | CP.PCM.PN ---
Subjective - Date & Time of Evaluation Date of Evaluation: 09/07/18 Time of Evaluation: 22:22 - Subjective Subjective: Above noted Objective - Vital Signs/Intake and Output Vital Signs (last 24 hours): Temp Pulse Resp BP Pulse Ox 97.9 F 90 18 109/67 95 09/07/18 17:07 09/07/18 17:07 09/07/18 17:07 09/07/18 17:07 09/07/18 17:07 - Medications Medications: Current Medications Lorazepam (Ativan) 0.5 mg PO BID [facility] Last Admin: 09/07/18 17:43 Dose: 0.5 mg Memantine (Namenda) 5 mg PO DAILY [facility] Last Admin: 09/07/18 09:52 Dose: 5 mg Montelukast Sodium (Singulair) 10 mg PO HS [facility] Risperidone (Risperdal Tab) 0.5 mg PO TID [facility] Last Admin: 09/07/18 17:45 Dose: 0.5 mg - Labs Labs: 09/07/18 05:55 09/07/18 05:55 - Respiratory Exam Respiratory Exam: NORMAL BREATHING PATTERN - Cardiovascular Exam Cardiovascular Exam: REGULAR RHYTHM - GI/Abdominal Exam GI & Abdominal Exam: Normal Bowel Sounds Assessment and Plan - Assessment and Plan (Free Text) Assessment: Mental status changes etiol?? Organic vs fuctional?? Seizure activity?? Transient global Amnesia?? Admit MRI EEG Neurology Psychiatry HX Breast Ca Hx Fe deficiency ??elevated CEA Oncology UTI urine c/s
--- NOTE | 2018-09-08 08:39 | CP.PCM.PN ---
Subjective - Date & Time of Evaluation Date of Evaluation: 09/08/18 Time of Evaluation: 08:36 - Subjective Subjective: Pt appears to be stable.the hgb iis stable as well . Will sign off case , Please recall if needed. Objective - Vital Signs/Intake and Output Vital Signs (last 24 hours): Temp Pulse Resp BP Pulse Ox 97.6 F 88 18 128/75 98 09/08/18 00:14 09/08/18 00:14 09/08/18 00:14 09/08/18 00:14 09/08/18 00:14 - Medications Medications: Current Medications Lorazepam (Ativan) 0.5 mg PO BID [facility] Last Admin: 09/08/18 08:20 Dose: 0.5 mg Memantine (Namenda) 5 mg PO DAILY [facility] Last Admin: 09/08/18 08:20 Dose: 5 mg Montelukast Sodium (Singulair) 10 mg PO HS [facility] Last Admin: 09/07/18 23:19 Dose: Not Given Risperidone (Risperdal Tab) 0.5 mg PO TID [facility] Last Admin: 09/08/18 08:20 Dose: 0.5 mg - Labs Labs: 09/07/18 05:55 09/07/18 05:55
--- NOTE | 2018-09-08 15:46 | CP.PCM.PN ---
Subjective - Date & Time of Evaluation Date of Evaluation: 09/08/18 Time of Evaluation: 22:22 - Subjective Subjective: Above noted Long d/w family (friends) Objective - Vital Signs/Intake and Output Vital Signs (last 24 hours): Temp Pulse Resp BP Pulse Ox 97.1 F L 97 H 20 148/83 99 09/08/18 08:50 09/08/18 08:50 09/08/18 08:50 09/08/18 08:50 09/08/18 08:50 - Medications Medications: Current Medications Lorazepam (Ativan) 0.5 mg PO BID [facility] Last Admin: 09/08/18 08:20 Dose: 0.5 mg Montelukast Sodium (Singulair) 10 mg PO HS [facility] Last Admin: 09/07/18 23:19 Dose: Not Given Risperidone (Risperdal Tab) 0.5 mg PO TID [facility] Last Admin: 09/08/18 12:16 Dose: 0.5 mg - Labs Labs: 09/07/18 05:55 09/07/18 05:55 - Respiratory Exam Respiratory Exam: NORMAL BREATHING PATTERN - Cardiovascular Exam Cardiovascular Exam: REGULAR RHYTHM - GI/Abdominal Exam GI & Abdominal Exam: Normal Bowel Sounds Assessment and Plan - Assessment and Plan (Free Text) Assessment: Mental status changes etiol?? Organic vs fuctional?? Seizure activity?? Transient global Amnesia?? Paranoid delusions Admit MRI EEG Neurology Psychiatry HX Breast Ca Hx Fe deficiency ??elevated CEA Oncology UTI urine c/s
--- NOTE | 2018-09-09 23:53 | CP.PCM.PN ---
Subjective - Date & Time of Evaluation Date of Evaluation: 09/09/18 Time of Evaluation: 22:32 - Subjective Subjective: Above noted EEG not done yet?? Objective - Vital Signs/Intake and Output Vital Signs (last 24 hours): Temp Pulse Resp BP Pulse Ox 98.8 F 104 H 20 105/74 95 09/09/18 16:24 09/09/18 16:24 09/09/18 16:24 09/09/18 16:24 09/09/18 16:24 - Medications Medications: Current Medications Lorazepam (Ativan) 0.5 mg PO BID [facility] Last Admin: 09/09/18 17:28 Dose: 0.5 mg Montelukast Sodium (Singulair) 10 mg PO HS [facility] Last Admin: 09/09/18 22:01 Dose: 10 mg Risperidone (Risperdal Tab) 0.5 mg PO TID [facility] Last Admin: 09/09/18 17:28 Dose: 0.5 mg - Labs Labs: 09/07/18 05:55 09/07/18 05:55 - Respiratory Exam Respiratory Exam: NORMAL BREATHING PATTERN - Cardiovascular Exam Cardiovascular Exam: REGULAR RHYTHM - GI/Abdominal Exam GI & Abdominal Exam: Normal Bowel Sounds Assessment and Plan - Assessment and Plan (Free Text) Assessment: Mental status changes etiol?? Organic vs fuctional?? Seizure activity?? Transient global Amnesia?? Paranoid delusions MRI vascular nonspecific EEG pending Neurology Psychiatry Hx Breast Ca Hx Fe deficiency ??elevated CEA Oncology UTI ?? urine c/s no growth
--- NOTE | 2018-09-10 10:47 | CP.PCM.CON ---
History of Present Illness - History of Present Illness History of Present Illness: This is a 78 yrs old female , no known previous formal psychiatric diagnosis or treatment admitted with change in mental status. Pt reportedly as some episodes of forgetfulness and occasional violent episodes with physical aggression which are getting worse. on evaluation patient was calm and cooperative, reported mood fine, stated she has been told by her friend who lives with her that she has episodes when she gets verbally aggressive and starts cursing her , pt however has no recollection of the episodes, patient through the interview, oriented to person only and partially to place , unable to provide her address, not oriented to time including month and year pt 's friend by bedside reported pt has been having decline in memory for past three years, at current time unable to take care of her instrumental daily activities , pt has episodes of agitation and physical aggression towards roommate however has not received formal treatment for dementia Past Patient History - Past Social History Smoking Status: Never Smoked - CARDIAC Hx Cardiac Disorders: No Hx Hypercholesterolemia: No Hx Hypertension: No - PULMONARY Hx Respiratory Disorders: No Hx Tuberculosis: No - NEUROLOGICAL Hx Neurological Disorder: Yes Hx Alzheimer's Disease: Yes Hx Seizures: No - HEENT Hx HEENT Problems: No - RENAL Hx Chronic Kidney Disease: No - ENDOCRINE/METABOLIC Hx Endocrine Disorders: No - HEMATOLOGICAL/ONCOLOGICAL Hx Blood Disorders: No Hx Human Immunodeficiency Virus (HIV): No - INTEGUMENTARY Hx Dermatological Problems: No - MUSCULOSKELETAL/RHEUMATOLOGICAL Hx Musculoskeletal Disorders: No Hx Falls: No - GASTROINTESTINAL Hx Gastrointestinal Disorders: No - GENITOURINARY/GYNECOLOGICAL Hx Genitourinary Disorders: No Hx Sexually Transmitted Disorders: No - PSYCHIATRIC Hx Psychophysiologic Disorder: No Hx Substance Use: No - SURGICAL HISTORY Hx Cholecystectomy: Yes - ANESTHESIA Hx Anesthesia: Yes Hx Anesthesia Reactions: No Hx Malignant Hyperthermia: No Meds Allergies/Adverse Reactions: Allergies Allergy/AdvReac Type Severity Reaction Status Date / Time Penicillins Allergy RASH Verified 11/20/16 05:52 - Medications Medications: Current Medications Lorazepam (Ativan) 0.5 mg PO BID [facility] Last Admin: 09/07/18 09:51 Dose: 0.5 mg Memantine (Namenda) 5 mg PO DAILY [facility] Last Admin: 09/07/18 09:52 Dose: 5 mg Montelukast Sodium (Singulair) 10 mg PO HS [facility] Risperidone (Risperdal Tab) 0.5 mg PO BID [facility] Last Admin: 09/07/18 10:00 Dose: 0.5 mg Results - Vital Signs Recent Vital Signs: Last Vital Signs Temp 98.0 F 09/07/18 08:18 Pulse 80 09/07/18 08:18 Resp 20 09/07/18 08:18 BP 110/72 09/07/18 08:18 Pulse Ox 95 09/07/18 08:18 - Labs Result Diagrams: 09/07/18 05:55 09/07/18 05:55 Labs: Laboratory Results - last 24 hr 09/06/18 09/06/18 09/07/18 12:40 15:10 05:55 WBC 9.0 RBC 4.84 Hgb 11.9 L Hct 37.6 MCV 77.8 L MCH 24.6 L MCHC 31.7 L RDW 15.1 H Plt Count 227 MPV 9.5 Neut % (Auto) 58.6 Lymph % (Auto) 29.5 [place] % (Auto) 6.6 Eos % (Auto) 4.8 H Baso % (Auto) 0.5 Neut # (Auto) 5.3 Lymph # (Auto) 2.7 [place] # (Auto) 0.6 Eos # (Auto) 0.4 Baso # (Auto) 0.0 Sodium Potassium Chloride Carbon Dioxide Anion Gap BUN Creatinine Est GFR ( Amer) Est GFR (Non-Af Amer) Random Glucose Calcium Total Bilirubin AST ALT Alkaline Phosphatase Total Protein Albumin Globulin Albumin/Globulin Ratio Triglycerides Cholesterol LDL Cholesterol Direct HDL Cholesterol Carcinoembryonic Ag Vitamin B12 690 Thyroxine (T4) 10.4 TSH 3rd Generation 1.76 Urine Opiates Screen Negative Urine Methadone Screen Negative Ur Barbiturates Screen Negative Ur Phencyclidine Scrn Negative Ur Amphetamines Screen Negative U Benzodiazepines Scrn Negative U Oth Cocaine Metabols Negative U Cannabinoids Screen Negative 09/07/18 05:55 WBC RBC Hgb Hct MCV MCH MCHC RDW Plt Count MPV Neut % (Auto) Lymph % (Auto) [place] % (Auto) Eos % (Auto) Baso % (Auto) Neut # (Auto) Lymph # (Auto) [place] # (Auto) Eos # (Auto) Baso # (Auto) Sodium 138 Potassium 4.1 Chloride 107 Carbon Dioxide 24 Anion Gap 11 BUN 14 Creatinine 0.7 Est GFR ( Amer) > 60 Est GFR (Non-Af Amer) > 60 Random Glucose 111 H Calcium 8.7 Total Bilirubin 0.2 AST 17 ALT 39 Alkaline Phosphatase 83 Total Protein 6.0 L Albumin 3.3 L Globulin 2.6 Albumin/Globulin Ratio 1.3 Triglycerides 121 Cholesterol 168 LDL Cholesterol Direct 103 HDL Cholesterol 55 Carcinoembryonic Ag 3.3 H Vitamin B12 Thyroxine (T4) TSH 3rd Generation 2.86 Urine Opiates Screen Urine Methadone Screen Ur Barbiturates Screen Ur Phencyclidine Scrn Ur Amphetamines Screen U Benzodiazepines Scrn U Oth Cocaine Metabols U Cannabinoids Screen Assessment & Plan - Assessment and Plan (Free Text) Assessment: major neurocognitive disorder moderate Plan: continue with risperidone 5mg bid increase namenda to 10mg please provide education to patient and family in reference to driving as pt per friend continues to drive and this is considered a risk to her and others
--- NOTE | 2018-09-10 11:38 | PQF ---
PROVIDER RESPONSE TEXT: UTI ruled out REVIEWER QUERY TEXT: Rule Out Condition Clarification Pt has documented UTI. Urine CS Negative. Please clarify status of this condition: -Patient has condition -Condition was ruled out Please provide corresponding diagnosis for patient's clinical picture and associated treatment -Patient had condition which is now resolved -Other (please specify) -Clinically unable to determine -Unknown The patient's Clinical Indicators include: 78 yo admitted for change in mental status Pt has had episodes of erratic behavior. Neurology note: IMP: 1. Altered mental status with underlying dementia with possible urinary tract in fection. UA: WBC 12, Leukos small URINE CS <1,000 CFU/ML Query created by: Radha Baird on 09/08/2018 9:28 AM Electronically signed by: Michael Cotter MD 09/10/2018 11:36 AM
--- NOTE | 2018-09-10 22:10 | CP.PCM.PN ---
Subjective - Date & Time of Evaluation Date of Evaluation: 09/10/18 Time of Evaluation: 22:22 - Subjective Subjective: Above noted Objective - Vital Signs/Intake and Output Vital Signs (last 24 hours): Temp Pulse Resp BP Pulse Ox 97.9 F 92 H 20 110/75 98 09/10/18 16:31 09/10/18 16:31 09/10/18 16:31 09/10/18 16:31 09/10/18 16:31 - Medications Medications: Current Medications Lorazepam (Ativan) 0.5 mg PO BID [facility] Last Admin: 09/10/18 17:10 Dose: 0.5 mg Montelukast Sodium (Singulair) 10 mg PO HS [facility] Last Admin: 09/10/18 21:38 Dose: 10 mg Risperidone (Risperdal Tab) 0.5 mg PO TID [facility] Last Admin: 09/10/18 17:08 Dose: 0.5 mg - Labs Labs: 09/07/18 05:55 09/07/18 05:55 - Respiratory Exam Respiratory Exam: NORMAL BREATHING PATTERN - Cardiovascular Exam Cardiovascular Exam: REGULAR RHYTHM - GI/Abdominal Exam GI & Abdominal Exam: Normal Bowel Sounds Assessment and Plan - Assessment and Plan (Free Text) Assessment: Mental status changes etiol?? Organic vs fuctional?? Seizure activity?? Transient global Amnesia?? Paranoid delusions MRI vascular nonspecific EEG pending Neurology Psychiatry Hx Breast Ca Hx Fe deficiency ??elevated CEA Oncology UTI ?? urine c/s no growth
--- NOTE | 2018-09-11 08:42 | PN ---
DATE: 09/10/2018 NEUROLOGY PROGRESS NOTE SUBJECTIVE: The patient is sitting on a chair, in no acute distress, has been wandering around in the hallways on and off. PHYSICAL EXAMINATION: VITAL SIGNS: Her blood pressure is 98/59, heart rate is 86 per minute, breathing at a rate of 16 per minute, temperature is 97.6 degrees Fahrenheit. HEENT: Normocephalic, and atraumatic. NECK: Supple. There are no carotid bruits. LUNGS: Clear. CARDIOVASCULAR SYSTEM EXAM: S1 and S2 audible. No murmurs. ABDOMEN: Soft, and nontender. Bowel sounds present. NEUROLOGIC EXAMINATION: Mental status: The patient is awake and alert. [place] She does not know the year. She follows simple commands. Cranial nerve examination: Pupils 3 mm bilaterally, reactive to light. Visual escalante are full. Extraocular movements are intact. There is no facial asymmetry. Palate is upgoing bilaterally, and tongue is midline. Motor examination: Tone is normal. Power is 5/5 bilaterally in all extremities. Reflexes are 1+ and symmetrical. Plantars are downgoing bilaterally. Gait is narrow based. LABORATORY DATA: Reviewed. MRI of the brain shows no acute intracranial abnormality. Mild chronic microangiopathic changes and mild age-related parenchymal volume loss. The patient also had an EEG where the report is awaited. Her vitamin B12 level is 690. Her T4 and TSH are within normal limits. IMPRESSION: Altered mental status with underlying dementia, likely of Alzheimer's type. RECOMMENDATIONS: 1. The patient was evaluated by Psychiatry and was started on Risperdal. Currently, the patient is on 0.5 mg three times a day. 2. The patient also to be continued on Namenda. 3. The patient had an electroencephalogram. Please follow up the result. 4. The patient apparently lives alone. She may need social insurance specialist involvement to help her safe discharge. 5. Please continue supportive care and treatment. Thank you for the opportunity to participate in the care of this patient. Tari Andrea MD
--- NOTE | 2018-09-11 20:01 | CP.PCM.PN ---
Subjective - Date & Time of Evaluation Date of Evaluation: 09/11/18 Time of Evaluation: 22:22 - Subjective Subjective: Above consults noted EEG ??? Objective - Vital Signs/Intake and Output Vital Signs (last 24 hours): Temp Pulse Resp BP Pulse Ox 97.7 F 99 H 20 117/78 97 09/11/18 17:35 09/11/18 17:35 09/11/18 17:35 09/11/18 17:35 09/11/18 17:35 - Medications Medications: Current Medications Montelukast Sodium (Singulair) 10 mg PO HS [facility] Last Admin: 09/10/18 21:38 Dose: 10 mg Risperidone (Risperdal Tab) 0.5 mg PO TID [facility] Last Admin: 09/11/18 18:17 Dose: 0.5 mg - Labs Labs: 09/07/18 05:55 09/07/18 05:55 - Respiratory Exam Respiratory Exam: NORMAL BREATHING PATTERN - Cardiovascular Exam Cardiovascular Exam: REGULAR RHYTHM - GI/Abdominal Exam GI & Abdominal Exam: Normal Bowel Sounds
--- NOTE | 2018-09-11 20:02 | CP.PCM.PN ---
Subjective - Date & Time of Evaluation Date of Evaluation: 09/11/18 Time of Evaluation: 22:22 - Subjective Subjective: Mental status changes etiol?? Organic vs fuctional?? Seizure activity?? Transient global Amnesia?? Paranoid delusions MRI vascular nonspecific Neurology EEG pending Psychiatry Dementio Hx Breast Ca Hx Fe deficiency ??elevated CEA Oncology note appreciated UTI ?? urine c/s no growth Objective - Vital Signs/Intake and Output Vital Signs (last 24 hours): Temp Pulse Resp BP Pulse Ox 97.7 F 99 H 20 117/78 97 09/11/18 17:35 09/11/18 17:35 09/11/18 17:35 09/11/18 17:35 09/11/18 17:35 - Medications Medications: Current Medications Montelukast Sodium (Singulair) 10 mg PO HS [facility] Last Admin: 09/10/18 21:38 Dose: 10 mg Risperidone (Risperdal Tab) 0.5 mg PO TID [facility] Last Admin: 09/11/18 18:17 Dose: 0.5 mg - Labs Labs: 09/07/18 05:55 09/07/18 05:55
--- NOTE | 2018-09-12 10:35 | CP.PCM.CON ---
History of Present Illness - History of Present Illness History of Present Illness: Psychiatry consult follow-up note CC: AMS HPI: 78 yo female admitted w/ AMS. Patient is currently calm and cooperative, no acute distress. She is only oriented to self, unable to provide date, location or any other relevant history. She denies acute depression/anxiety/AH/VH/paranoia to auto service writer. No SI/HI. Pt denies acute psychiatric complaints. ALL: PCN Impression: 78 yo female admitted w/ AMS of unclear etiology, could be worsening major neurocognitive impairment, currently denying psychotic symptoms to auto service writer. -Recommend to continue Risperdal 0.5 mg PO TID -Recommend to taper Ativan or make PRN in case it is causing increased confusion in the patient -Patient will likely need supervision or carton and can supply supervisor placement upon discharge as she is unlikely to be able to care for herself if her mental status does not improve -Patient does not have capacity to make medical decisions at this time Past Patient History - Past Social History Smoking Status: Never Smoked - CARDIAC Hx Cardiac Disorders: No Hx Hypercholesterolemia: No Hx Hypertension: No - PULMONARY Hx Respiratory Disorders: No Hx Tuberculosis: No - NEUROLOGICAL Hx Neurological Disorder: Yes Hx Alzheimer's Disease: Yes Hx Seizures: No - HEENT Hx HEENT Problems: No - RENAL Hx Chronic Kidney Disease: No - ENDOCRINE/METABOLIC Hx Endocrine Disorders: No - HEMATOLOGICAL/ONCOLOGICAL Hx Blood Disorders: No Hx Human Immunodeficiency Virus (HIV): No - INTEGUMENTARY Hx Dermatological Problems: No - MUSCULOSKELETAL/RHEUMATOLOGICAL Hx Musculoskeletal Disorders: No Hx Falls: No - GASTROINTESTINAL Hx Gastrointestinal Disorders: No - GENITOURINARY/GYNECOLOGICAL Hx Genitourinary Disorders: No Hx Sexually Transmitted Disorders: No - PSYCHIATRIC Hx Psychophysiologic Disorder: No Hx Substance Use: No - SURGICAL HISTORY Hx Cholecystectomy: Yes - ANESTHESIA Hx Anesthesia: Yes Hx Anesthesia Reactions: No Hx Malignant Hyperthermia: No Meds Allergies/Adverse Reactions: Allergies Allergy/AdvReac Type Severity Reaction Status Date / Time Penicillins Allergy RASH Verified 11/20/16 05:52 - Medications Medications: Current Medications Lorazepam (Ativan) 0.5 mg PO BID [facility] Last Admin: 09/12/18 09:47 Dose: 0.5 mg Montelukast Sodium (Singulair) 10 mg PO HS [facility] Last Admin: 09/11/18 21:36 Dose: 10 mg Risperidone (Risperdal Tab) 0.5 mg PO TID [facility] Last Admin: 09/12/18 09:47 Dose: 0.5 mg Results - Vital Signs Recent Vital Signs: Last Vital Signs Temp 98.3 F 09/12/18 08:24 Pulse 84 09/12/18 08:24 Resp 20 09/12/18 08:24 BP 174/74 H 09/12/18 08:24 Pulse Ox 96 09/12/18 08:24 - Labs Result Diagrams: 09/07/18 05:55 09/07/18 05:55
--- NOTE | 2018-09-12 19:01 | CP.PCM.PN ---
Subjective - Date & Time of Evaluation Date of Evaluation: 09/12/18 Time of Evaluation: 22:22 - Subjective Subjective: Above noted Objective - Vital Signs/Intake and Output Vital Signs (last 24 hours): Temp Pulse Resp BP Pulse Ox 97.7 F 97 H 18 132/80 99 09/12/18 17:00 09/12/18 17:00 09/12/18 17:00 09/12/18 17:00 09/12/18 17:00 - Medications Medications: Current Medications Lorazepam (Ativan) 0.5 mg PO BID [facility] Last Admin: 09/12/18 16:07 Dose: 0.5 mg Montelukast Sodium (Singulair) 10 mg PO HS [facility] Last Admin: 09/11/18 21:36 Dose: 10 mg Risperidone (Risperdal Tab) 0.5 mg PO TID [facility] Last Admin: 09/12/18 16:07 Dose: 0.5 mg - Labs Labs: 09/07/18 05:55 09/07/18 05:55 - Respiratory Exam Respiratory Exam: NORMAL BREATHING PATTERN - Cardiovascular Exam Cardiovascular Exam: REGULAR RHYTHM - GI/Abdominal Exam GI & Abdominal Exam: Normal Bowel Sounds Assessment and Plan - Assessment and Plan (Free Text) Assessment: Mental status changes etiol?? Organic vs fuctional?? Dementia ? Seizure activity?? Hx Transient global Amnesia?? HX Paranoid delusions MRI vascular nonspecific Neurology EEG pending Psychiatry Dementia resperidol Hx Breast Ca Hx Fe deficiency ??elevated CEA Oncology note appreciated UTI ?? urine c/s no growth
--- NOTE | 2018-09-13 18:20 | CP.PCM.PN ---
Subjective - Date & Time of Evaluation Date of Evaluation: 09/13/18 Time of Evaluation: 22:22 - Subjective Subjective: EEG still pending Objective - Vital Signs/Intake and Output Vital Signs (last 24 hours): Temp Pulse Resp BP Pulse Ox 98.3 F 100 H 20 115/74 95 09/13/18 16:37 09/13/18 16:37 09/13/18 16:37 09/13/18 16:37 09/13/18 16:37 - Medications Medications: Current Medications Lorazepam (Ativan) 0.5 mg PO BID PRN PRN Reason: Agitation Montelukast Sodium (Singulair) 10 mg PO HS [facility] Last Admin: 09/12/18 21:24 Dose: 10 mg Risperidone (Risperdal Tab) 0.5 mg PO TID [facility] Last Admin: 09/13/18 17:25 Dose: 0.5 mg - Labs Labs: 09/07/18 05:55 09/07/18 05:55 - Respiratory Exam Respiratory Exam: NORMAL BREATHING PATTERN - Cardiovascular Exam Cardiovascular Exam: REGULAR RHYTHM - GI/Abdominal Exam GI & Abdominal Exam: Normal Bowel Sounds Assessment and Plan - Assessment and Plan (Free Text) Assessment: Mental status changes etiol?? Organic vs fuctional?? Dementia ? Seizure activity?? Hx Transient global Amnesia?? HX Paranoid delusions MRI vascular nonspecific Neurology EEG pending Psychiatry Dementia resperidol Hx Breast Ca Hx Fe deficiency ??elevated CEA Oncology note appreciated UTI ?? urine c/s no growth
--- NOTE | 2018-09-14 19:57 | CP.PCM.PN ---
Subjective - Date & Time of Evaluation Date of Evaluation: 09/14/18 Time of Evaluation: 22:22 - Subjective Subjective: EEG still pending Objective - Vital Signs/Intake and Output Vital Signs (last 24 hours): Temp Pulse Resp BP Pulse Ox 98.2 F 100 H 18 113/70 96 09/14/18 16:15 09/14/18 16:15 09/14/18 16:15 09/14/18 16:15 09/14/18 16:15 - Medications Medications: Current Medications Lorazepam (Ativan) 0.5 mg PO BID PRN PRN Reason: Agitation Last Admin: 09/14/18 18:40 Dose: 0.5 mg Montelukast Sodium (Singulair) 10 mg PO HS [facility] Last Admin: 09/13/18 21:08 Dose: 10 mg Risperidone (Risperdal Tab) 0.5 mg PO TID [facility] Last Admin: 09/14/18 16:19 Dose: 0.5 mg - Labs Labs: 09/07/18 05:55 09/07/18 05:55 - Respiratory Exam Respiratory Exam: NORMAL BREATHING PATTERN - Cardiovascular Exam Cardiovascular Exam: REGULAR RHYTHM - GI/Abdominal Exam GI & Abdominal Exam: Normal Bowel Sounds Assessment and Plan - Assessment and Plan (Free Text) Assessment: Mental status changes etiol?? Organic vs fuctional?? Dementia ? Seizure activity?? Hx Transient global Amnesia?? HX Paranoid delusions MRI vascular nonspecific Neurology EEG pending Psychiatry Dementia resperidol Hx Breast Ca Hx Fe deficiency ??elevated CEA Oncology note appreciated UTI ?? urine c/s no growth
--- NOTE | 2018-09-15 11:20 | CP.PCM.CON ---
History of Present Illness - History of Present Illness History of Present Illness: Pt is a 78 year old female admitted to [facility] [place] and referred to the tag writer for evaluation. Pt unable to provide her medical history or reason for admission. See medical record for complete medical history and medication list. Pt reported living alone. She was unable to report where she resides/town she lives in. Pt reported never having been and having 0 children. Ed.Voc: pt born and raised in [place], came [place] the [place] in the [place]. Pt University educated in [place]. 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 Psych history denied, pt denied a history of alc/sub abuse. Pt spoke of doing her own shopping/bill pay. Pt spoke of eating outside the home. Pt administered the Dementia Rating scale to assess her cognitive functioning. On interview, deficits were noted- particularly regarding short term info rmation. On the DRS, pt scored an overall score of 87 (125+ = intact cognitive skills). Pt scored in the Deficient Range on Memory, Initiation and Conceptualization/Verbal abstraction tasks. Her memory skills were most impaired with deficits in New Learning evident. Pt's Attention and Construction skills fell within normal limits. Overall 97 Construction 4 Attention 32 Memory 5 (18= within normal limits) Conceptualization 25 (32+ within normal limits) Initation 21 (32+ within normall limits). Insight into deficits poor. Significant deficits evident consistent with Dementia. Thank you for this referral, Dr. Hassan Past Patient History - Past Social History Smoking Status: Never Smoked - CARDIAC Hx Cardiac Disorders: No Hx Hypercholesterolemia: No Hx Hypertension: No - PULMONARY Hx Respiratory Disorders: No Hx Tuberculosis: No - NEUROLOGICAL Hx Neurological Disorder: Yes Hx Alzheimer's Disease: Yes Hx Seizures: No - HEENT Hx HEENT Problems: No - RENAL Hx Chronic Kidney Disease: No - ENDOCRINE/METABOLIC Hx Endocrine Disorders: No - HEMATOLOGICAL/ONCOLOGICAL Hx Blood Disorders: No Hx Human Immunodeficiency Virus (HIV): No - INTEGUMENTARY Hx Dermatological Problems: No - MUSCULOSKELETAL/RHEUMATOLOGICAL Hx Musculoskeletal Disorders: No Hx Falls: No - GASTROINTESTINAL Hx Gastrointestinal Disorders: No - GENITOURINARY/GYNECOLOGICAL Hx Genitourinary Disorders: No Hx Sexually Transmitted Disorders: No - PSYCHIATRIC Hx Psychophysiologic Disorder: No Hx Substance Use: No - SURGICAL HISTORY Hx Cholecystectomy: Yes - ANESTHESIA Hx Anesthesia: Yes Hx Anesthesia Reactions: No Hx Malignant Hyperthermia: No Meds Allergies/Adverse Reactions: Allergies Allergy/AdvReac Type Severity Reaction Status Date / Time Penicillins Allergy RASH Verified 11/20/16 05:52 - Medications Medications: Current Medications Lorazepam (Ativan) 0.5 mg PO BID PRN PRN Reason: Agitation Last Admin: 09/15/18 10:17 Dose: 0.5 mg Montelukast Sodium (Singulair) 10 mg PO HS [facility] Last Admin: 09/14/18 21:30 Dose: 10 mg Risperidone (Risperdal Tab) 0.5 mg PO TID [facility] Last Admin: 09/15/18 08:51 Dose: 0.5 mg Results - Vital Signs Recent Vital Signs: Last Vital Signs Temp 97.6 F 09/15/18 08:55 Pulse 84 09/15/18 08:55 Resp 18 09/15/18 08:55 BP 102/54 L 09/15/18 08:55 Pulse Ox 96 09/15/18 08:55 - Labs Result Diagrams: 09/07/18 05:55 09/07/18 05:55
--- NOTE | 2018-09-15 17:28 | CP.PCM.PN ---
Subjective - Date & Time of Evaluation Date of Evaluation: 09/15/18 Time of Evaluation: 22:22 - Subjective Subjective: Above noted Objective - Vital Signs/Intake and Output Vital Signs (last 24 hours): Temp Pulse Resp BP Pulse Ox 97.7 F 72 20 116/50 L 98 09/15/18 17:21 09/15/18 17:21 09/15/18 17:21 09/15/18 17:21 09/15/18 17:21 - Medications Medications: Current Medications Lorazepam (Ativan) 0.5 mg PO BID PRN PRN Reason: Agitation Last Admin: 09/15/18 16:02 Dose: 0.5 mg Montelukast Sodium (Singulair) 10 mg PO HS [facility] Last Admin: 09/14/18 21:30 Dose: 10 mg Risperidone (Risperdal Tab) 0.5 mg PO TID [facility] Last Admin: 09/15/18 16:02 Dose: 0.5 mg - Labs Labs: 09/07/18 05:55 09/07/18 05:55 - Respiratory Exam Respiratory Exam: NORMAL BREATHING PATTERN - Cardiovascular Exam Cardiovascular Exam: REGULAR RHYTHM - GI/Abdominal Exam GI & Abdominal Exam: Normal Bowel Sounds Assessment and Plan - Assessment and Plan (Free Text) Assessment: Mental status changes etiol?? Dementia Hx Seizure activity?? Hx Transient global Amnesia?? HX Paranoid delusions MRI vascular nonspecific Neurology EEG pending Psychiatry Dementia resperidol Hx Breast Ca Hx Fe deficiency ??elevated CEA Oncology note appreciated UTI ?? urine c/s no growth
--- NOTE | 2018-09-16 08:06 | CP.PCM.PN ---
Subjective - Date & Time of Evaluation Date of Evaluation: 09/16/18 Time of Evaluation: 22:22 - Subjective Subjective: EEG ??? Objective - Vital Signs/Intake and Output Vital Signs (last 24 hours): Temp Pulse Resp BP Pulse Ox 97.7 F 72 20 116/50 L 98 09/15/18 17:21 09/15/18 17:21 09/15/18 17:21 09/15/18 17:21 09/15/18 17:21 - Medications Medications: Current Medications Lorazepam (Ativan) 0.5 mg PO BID PRN PRN Reason: Agitation Last Admin: 09/16/18 02:48 Dose: 0.5 mg Montelukast Sodium (Singulair) 10 mg PO HS [facility] Last Admin: 09/15/18 21:05 Dose: 10 mg Risperidone (Risperdal Tab) 0.5 mg PO TID [facility] Last Admin: 09/15/18 16:02 Dose: 0.5 mg - Labs Labs: 09/07/18 05:55 09/07/18 05:55 - Respiratory Exam Respiratory Exam: NORMAL BREATHING PATTERN - Cardiovascular Exam Cardiovascular Exam: REGULAR RHYTHM - GI/Abdominal Exam GI & Abdominal Exam: Normal Bowel Sounds Assessment and Plan - Assessment and Plan (Free Text) Assessment: Mental status changes etiol?? Dementia Hx Seizure activity?? Hx Transient global Amnesia?? HX Paranoid delusions MRI vascular nonspecific Neurology EEG pending Psychiatry Dementia resperidol Hx Breast Ca Hx Fe deficiency ??elevated CEA Oncology note appreciated UTI ?? urine c/s no growth
--- NOTE | 2018-09-17 17:16 | CP.PCM.PN ---
Subjective - Date & Time of Evaluation Date of Evaluation: 09/17/18 Time of Evaluation: 22:22 - Subjective Subjective: No change EEG?? Objective - Vital Signs/Intake and Output Vital Signs (last 24 hours): Temp Pulse Resp BP Pulse Ox 97.7 F 80 18 110/64 98 09/17/18 16:59 09/17/18 16:59 09/17/18 16:59 09/17/18 16:59 09/17/18 16:59 - Medications Medications: Current Medications Lorazepam (Ativan) 0.5 mg PO BID PRN PRN Reason: Agitation Last Admin: 09/16/18 20:39 Dose: 0.5 mg Montelukast Sodium (Singulair) 10 mg PO HS [facility] Last Admin: 09/16/18 21:22 Dose: 10 mg Risperidone (Risperdal Tab) 0.5 mg PO TID [facility] Last Admin: 09/17/18 13:03 Dose: 0.5 mg - Labs Labs: 09/07/18 05:55 09/07/18 05:55 - Respiratory Exam Respiratory Exam: NORMAL BREATHING PATTERN - Cardiovascular Exam Cardiovascular Exam: REGULAR RHYTHM - GI/Abdominal Exam GI & Abdominal Exam: Normal Bowel Sounds Assessment and Plan - Assessment and Plan (Free Text) Assessment: Mental status changes etiol?? Dementia Hx Seizure activity?? Hx Transient global Amnesia?? HX Paranoid delusions MRI vascular nonspecific Neurology EEG pending Psychiatry Dementia Resperidol Hx Breast Ca Hx Fe deficiency ??elevated CEA Oncology note appreciated UTI ?? urine c/s no growth
--- NOTE | 2018-09-18 16:48 | CP.PCM.PN ---
Subjective - Date & Time of Evaluation Date of Evaluation: 09/18/18 Time of Evaluation: 22:22 - Subjective Subjective: Above noted EEG Requested results again!! Objective - Vital Signs/Intake and Output Vital Signs (last 24 hours): Temp Pulse Resp BP Pulse Ox 98.5 F 92 H 18 110/70 97 09/18/18 16:29 09/18/18 16:29 09/18/18 16:29 09/18/18 16:29 09/18/18 16:29 - Medications Medications: Current Medications Lorazepam (Ativan) 0.5 mg PO BID PRN PRN Reason: Agitation Last Admin: 09/18/18 10:04 Dose: 0.5 mg Memantine (Namenda) 5 mg PO DAILY [facility] Last Admin: 09/18/18 13:28 Dose: 5 mg Montelukast Sodium (Singulair) 10 mg PO HS [facility] Last Admin: 09/17/18 21:08 Dose: 10 mg Risperidone (Risperdal Tab) 0.5 mg PO TID [facility] Last Admin: 09/18/18 16:11 Dose: 0.5 mg - Labs Labs: 09/07/18 05:55 09/07/18 05:55 - Respiratory Exam Respiratory Exam: NORMAL BREATHING PATTERN - Cardiovascular Exam Cardiovascular Exam: REGULAR RHYTHM - GI/Abdominal Exam GI & Abdominal Exam: Normal Bowel Sounds Assessment and Plan - Assessment and Plan (Free Text) Assessment: Mental status changes etiol?? Dementia Pseudodementia??? Hx Seizure activity?? Hx Transient global Amnesia?? HX Paranoid delusions MRI vascular nonspecific Neurology EEG pending Psychiatry Dementia Resperidol Namenda SSRIl?? Hx Breast Ca Hx Fe deficiency ??elevated CEA Oncology note appreciated UTI ?? urine c/s no growth
--- NOTE | 2018-09-19 17:17 | CP.PCM.CON ---
History of Present Illness - History of Present Illness History of Present Illness: consult requested to evaluate capacity to make decision This is a 78 yrs old female , no known previous formal psychiatric diagnosis or treatment admitted with change in mental status. Pt reportedly as some episodes of forgetfulness and occasional violent episodes with physical aggression which are getting worse. on evaluation patient was calm and cooperative, reported mood fine, patient oriented to person only, not oriented to place or time patient unable to say how long she has been in the hospital, unable to verbalize her treatment process unable to verbalize risks or benefits, and unable to retain any of provided information Past Patient History - Past Social History Smoking Status: Never Smoked - CARDIAC Hx Cardiac Disorders: No Hx Hypercholesterolemia: No Hx Hypertension: No - PULMONARY Hx Respiratory Disorders: No Hx Tuberculosis: No - NEUROLOGICAL Hx Neurological Disorder: Yes Hx Alzheimer's Disease: Yes Hx Seizures: No - HEENT Hx HEENT Problems: No - RENAL Hx Chronic Kidney Disease: No - ENDOCRINE/METABOLIC Hx Endocrine Disorders: No - HEMATOLOGICAL/ONCOLOGICAL Hx Blood Disorders: No Hx Human Immunodeficiency Virus (HIV): No - INTEGUMENTARY Hx Dermatological Problems: No - MUSCULOSKELETAL/RHEUMATOLOGICAL Hx Musculoskeletal Disorders: No Hx Falls: No - GASTROINTESTINAL Hx Gastrointestinal Disorders: No - GENITOURINARY/GYNECOLOGICAL Hx Genitourinary Disorders: No Hx Sexually Transmitted Disorders: No - PSYCHIATRIC Hx Psychophysiologic Disorder: No Hx Substance Use: No - SURGICAL HISTORY Hx Cholecystectomy: Yes - ANESTHESIA Hx Anesthesia: Yes Hx Anesthesia Reactions: No Hx Malignant Hyperthermia: No Meds Allergies/Adverse Reactions: Allergies Allergy/AdvReac Type Severity Reaction Status Date / Time Penicillins Allergy RASH Verified 11/20/16 05:52 - Medications Medications: Current Medications Lorazepam (Ativan) 0.5 mg PO BID PRN PRN Reason: Agitation Last Admin: 09/19/18 09:39 Dose: 0.5 mg Memantine (Namenda) 5 mg PO DAILY [facility] Last Admin: 09/19/18 08:54 Dose: 5 mg Montelukast Sodium (Singulair) 10 mg PO HS [facility] Last Admin: 09/18/18 21:04 Dose: 10 mg Risperidone (Risperdal Tab) 0.5 mg PO TID [facility] Last Admin: 09/19/18 16:15 Dose: 0.5 mg Results - Vital Signs Recent Vital Signs: Last Vital Signs Temp 98.3 F 12/18/18 16:03 Pulse 94 H 09/19/18 16:03 Resp 20 09/19/18 16:03 BP 112/74 09/19/18 16:03 Pulse Ox 98 09/19/18 16:03 - Labs Result Diagrams: 09/07/18 05:55 09/07/18 05:55 Assessment & Plan - Assessment and Plan (Free Text) Assessment: major neurocognitive disorder moderate to severe Plan: continue current management pt at current mental status does not have the capacity to make decision in reference to her medical treatment
--- NOTE | 2018-09-19 21:01 | CP.PCM.PN ---
Subjective - Date & Time of Evaluation Date of Evaluation: 09/19/18 Time of Evaluation: 22:22 - Subjective Subjective: Above noted EEG ??? Objective - Vital Signs/Intake and Output Vital Signs (last 24 hours): Temp Pulse Resp BP Pulse Ox 98.3 F 94 H 20 112/74 98 09/19/18 16:03 09/19/18 16:03 09/19/18 16:03 09/19/18 16:03 09/19/18 16:03 - Medications Medications: Current Medications Lorazepam (Ativan) 0.5 mg PO BID PRN PRN Reason: Agitation Last Admin: 09/19/18 19:37 Dose: 0.5 mg Memantine (Namenda) 5 mg PO DAILY [facility] Last Admin: 09/19/18 08:54 Dose: 5 mg Montelukast Sodium (Singulair) 10 mg PO HS [facility] Last Admin: 09/18/18 21:04 Dose: 10 mg Risperidone (Risperdal Tab) 0.5 mg PO TID [facility] Last Admin: 09/19/18 16:15 Dose: 0.5 mg - Labs Labs: 09/07/18 05:55 09/07/18 05:55 - Respiratory Exam Respiratory Exam: NORMAL BREATHING PATTERN - Cardiovascular Exam Cardiovascular Exam: REGULAR RHYTHM - GI/Abdominal Exam GI & Abdominal Exam: Normal Bowel Sounds Assessment and Plan - Assessment and Plan (Free Text) Assessment: Mental status changes etiol?? Dementia Pseudodementia??? Hx Seizure activity?? Hx Transient global Amnesia?? HX Paranoid delusions MRI vascular nonspecific Neurology EEG pending Psychiatry Dementia Resperidol Namenda SSRIl?? Hx Breast Ca Hx Fe deficiency ??elevated CEA Oncology note appreciated UTI ?? urine c/s no growth
--- NOTE | 2018-09-20 12:28 | PCM.EEG ---
Electroencephalogram Report - Electroencephalogram Report Procedure Date: 09/07/18 Medication: Lorazepam, memantine, risperdal Interpretation: Technical Information: This was a 21 -channel EEG, 1-channel EKG routine EEG performed using an [employer] machine. Electrodes were applied using the 10/20 international placement system. Start; 10;39 End; 11;25 Total time, 44 min Clinical Information: Dementia. EEG Detail: During active states, the EEG contained symmetric 10-20 Hz,20-30 uV activity seen bi-frontally. . During resting wakefulness there was a symmetric posterior dominant rhythm at 7.5 Hz, 30-50 uV, which was reactive to eye opening and closing. . Drowsiness, seen at 10;44, was associated with fragmentation of the posterior dominant rhythm and with slow roving eye movements. There was intermittent bi frontal slowing. Hyperventilation was performed, no changes in the record. Photic stimulation was performed and there were no changes on the record. Interictal activity; none Focal abnormality; none I Impression: This is an abnormal EEG record that demonstrate the presence of a mild non specific diffuse disturbance of cortical activity, this is keeping with a diffuse patel matter dysfunction, these findings re not specific.
--- NOTE | 2018-09-20 16:22 | CP.PCM.PN ---
Subjective - Date & Time of Evaluation Date of Evaluation: 09/20/18 Time of Evaluation: 22:22 - Subjective Subjective: EEG not specific Objective - Vital Signs/Intake and Output Vital Signs (last 24 hours): Temp Pulse Resp BP Pulse Ox 98.6 F 87 20 103/70 96 09/20/18 16:04 09/20/18 16:04 09/20/18 16:04 09/20/18 16:04 09/20/18 16:04 - Medications Medications: Current Medications Lorazepam (Ativan) 0.5 mg PO BID PRN PRN Reason: Agitation Last Admin: 09/19/18 19:37 Dose: 0.5 mg Memantine (Namenda) 5 mg PO DAILY [facility] Last Admin: 09/20/18 08:39 Dose: 5 mg Montelukast Sodium (Singulair) 10 mg PO HS [facility] Last Admin: 09/19/18 21:32 Dose: 10 mg Risperidone (Risperdal Tab) 0.5 mg PO TID [facility] Last Admin: 09/20/18 08:40 Dose: 0.5 mg - Labs Labs: 09/07/18 05:55 09/07/18 05:55 - Respiratory Exam Respiratory Exam: NORMAL BREATHING PATTERN - Cardiovascular Exam Cardiovascular Exam: REGULAR RHYTHM - GI/Abdominal Exam GI & Abdominal Exam: Normal Bowel Sounds Assessment and Plan - Assessment and Plan (Free Text) Assessment: Mental status changes etiol?? Dementia Pseudodementia??? Depression Hx Seizure activity?? Hx Transient global Amnesia?? HX Paranoid delusions MRI vascular nonspecific Neurology EEG nonspecific Psychiatry Dementia Resperidol Namenda SSRIl?? Pt currently lacks decision making capacity for medical care Hx Breast Ca Hx Fe deficiency ??elevated CEA Oncology note appreciated UTI ?? urine c/s no growth
--- NOTE | 2018-09-21 21:08 | CP.PCM.PN ---
Subjective - Date & Time of Evaluation Date of Evaluation: 09/21/18 Time of Evaluation: 22:22 - Subjective Subjective: Above noted Objective - Vital Signs/Intake and Output Vital Signs (last 24 hours): Temp Pulse Resp BP Pulse Ox 98.4 F 80 18 107/72 98 09/21/18 16:18 09/21/18 16:18 09/21/18 16:18 09/21/18 16:18 09/21/18 16:18 - Medications Medications: Current Medications Lorazepam (Ativan) 0.5 mg PO BID PRN PRN Reason: Agitation Last Admin: 09/21/18 20:04 Dose: 0.5 mg Memantine (Namenda) 5 mg PO DAILY [facility] Last Admin: 09/21/18 08:40 Dose: 5 mg Montelukast Sodium (Singulair) 10 mg PO HS [facility] Last Admin: 09/20/18 21:15 Dose: 10 mg Risperidone (Risperdal Tab) 0.5 mg PO TID [facility] Last Admin: 09/21/18 16:28 Dose: 0.5 mg - Labs Labs: 09/07/18 05:55 09/07/18 05:55 Assessment and Plan - Assessment and Plan (Free Text) Assessment: Mental status changes etiol?? Dementia Pseudodementia??? Depression Hx Seizure activity?? Hx Transient global Amnesia?? HX Paranoid delusions MRI vascular nonspecific Neurology EEG nonspecific Psychiatry Dementia Resperidol Namenda SSRIl?? Pt currently lacks decision making capacity for medical care Hx Breast Ca Hx Fe deficiency ??elevated CEA Oncology note appreciated UTI ?? urine c/s no growth
--- NOTE | 2018-09-22 16:26 | CP.PCM.PN ---
Subjective - Date & Time of Evaluation Date of Evaluation: 09/22/18 Time of Evaluation: 22:22 - Subjective Subjective: Above noted Objective - Vital Signs/Intake and Output Vital Signs (last 24 hours): Temp Pulse Resp BP Pulse Ox 98.5 F 88 20 107/70 96 09/22/18 16:18 09/22/18 16:18 09/22/18 16:18 09/22/18 16:18 09/22/18 16:18 - Medications Medications: Current Medications Lorazepam (Ativan) 0.5 mg PO BID PRN PRN Reason: Agitation Last Admin: 09/21/18 20:04 Dose: 0.5 mg Memantine (Namenda) 5 mg PO DAILY [facility] Last Admin: 09/22/18 09:34 Dose: 5 mg Montelukast Sodium (Singulair) 10 mg PO HS [facility] Last Admin: 09/21/18 21:24 Dose: 10 mg - Labs Labs: 09/07/18 05:55 09/07/18 05:55 - Respiratory Exam Respiratory Exam: NORMAL BREATHING PATTERN - Cardiovascular Exam Cardiovascular Exam: Tachycardia, REGULAR RHYTHM - GI/Abdominal Exam GI & Abdominal Exam: Normal Bowel Sounds Assessment and Plan - Assessment and Plan (Free Text) Assessment: Mental status changes etiol?? Dementia Pseudodementia??? Depression Hx Seizure activity?? Hx Transient global Amnesia?? HX Paranoid delusions MRI vascular nonspecific Neurology EEG nonspecific Psychiatry Dementia Resperidol Namenda SSRIl?? Pt currently lacks decision making capacity for medical care and needs assistance for financial matters. She would be a vulnerable elderly without assistance Hx Breast Ca Hx Fe deficiency ??elevated [facility] Oncology note appreciated UTI ?? urine c/s no growth
--- NOTE | 2018-09-23 23:07 | CP.PCM.PN ---
Subjective - Date & Time of Evaluation Date of Evaluation: 09/23/18 Time of Evaluation: 22:22 - Subjective Subjective: Above noted Objective - Vital Signs/Intake and Output Vital Signs (last 24 hours): Temp Pulse Resp BP Pulse Ox 97.7 F 76 20 100/62 98 09/23/18 17:00 09/23/18 17:00 09/23/18 17:00 09/23/18 17:00 09/23/18 17:00 - Medications Medications: Current Medications Memantine (Namenda) 5 mg PO DAILY [facility] Last Admin: 09/23/18 08:10 Dose: 5 mg Risperidone (Risperdal Tab) 0.5 mg PO TID [facility] Last Admin: 09/23/18 16:41 Dose: 0.5 mg - Labs Labs: 09/07/18 05:55 09/07/18 05:55 - Respiratory Exam Respiratory Exam: NORMAL BREATHING PATTERN - Cardiovascular Exam Cardiovascular Exam: REGULAR RHYTHM - GI/Abdominal Exam GI & Abdominal Exam: Normal Bowel Sounds Assessment and Plan - Assessment and Plan (Free Text) Assessment: Mental status changes etiol?? Dementia Pseudodementia??? Depression Hx Seizure activity?? Hx Transient global Amnesia?? HX Paranoid delusions MRI vascular nonspecific Neurology EEG nonspecific Psychiatry Dementia Resperidol Namenda SSRIl?? Pt currently lacks decision making capacity for medical care and needs assistance for financial matters. She would be a vulnerable elderly without assistance Hx Breast Ca Hx Fe deficiency ??elevated CEA Oncology note appreciated UTI ?? urine c/s no growth
--- NOTE | 2018-09-24 13:24 | CP.PCM.PN ---
Subjective - Date & Time of Evaluation Date of Evaluation: 09/24/18 Time of Evaluation: 22:22 - Subjective Subjective: Improving Objective - Vital Signs/Intake and Output Vital Signs (last 24 hours): Temp Pulse Resp BP Pulse Ox 97.8 F 87 19 158/89 H 97 09/24/18 07:58 09/24/18 07:58 09/24/18 07:58 09/24/18 07:58 09/24/18 07:58 - Medications Medications: Current Medications Lorazepam (Ativan) 0.5 mg PO BID PRN PRN Reason: Agitation Memantine (Namenda) 5 mg PO DAILY [facility] Last Admin: 09/24/18 09:21 Dose: 5 mg Montelukast Sodium (Singulair) 10 mg PO HS [facility] Risperidone (Risperdal Tab) 0.5 mg PO TID [facility] Last Admin: 09/24/18 13:19 Dose: 0.5 mg - Labs Labs: 09/07/18 05:55 09/07/18 05:55 - Respiratory Exam Respiratory Exam: NORMAL BREATHING PATTERN - Cardiovascular Exam Cardiovascular Exam: REGULAR RHYTHM - GI/Abdominal Exam GI & Abdominal Exam: Normal Bowel Sounds Assessment and Plan - Assessment and Plan (Free Text) Assessment: Mental status changes etiol?? Dementia Pseudodementia??? Depression Hx Seizure activity?? Hx Transient global Amnesia?? HX Paranoid delusions MRI vascular nonspecific Neurology EEG nonspecific Psychiatry Dementia Resperidol Namenda SSRIl?? Pt currently lacks decision making capacity for medical care and needs assistance for financial matters. She would be a vulnerable elderly without assistance Hx Breast Ca Hx Fe deficiency ??elevated CEA Oncology note appreciated UTI ?? urine c/s no growth
--- NOTE | 2018-09-25 17:40 | CP.PCM.PN ---
Subjective - Date & Time of Evaluation Date of Evaluation: 09/25/18 Time of Evaluation: 22:22 - Subjective Subjective: Above noted Objective - Vital Signs/Intake and Output Vital Signs (last 24 hours): Temp Pulse Resp BP Pulse Ox 98 F 87 20 111/71 99 09/25/18 16:27 09/25/18 16:27 09/25/18 16:27 09/25/18 16:27 09/25/18 16:27 - Medications Medications: Current Medications Lorazepam (Ativan) 0.5 mg PO BID PRN PRN Reason: Agitation Memantine (Namenda) 5 mg PO DAILY [facility] Last Admin: 09/25/18 08:05 Dose: 5 mg Montelukast Sodium (Singulair) 10 mg PO HS [facility] Last Admin: 09/24/18 21:59 Dose: 10 mg Risperidone (Risperdal Tab) 0.5 mg PO TID [facility] Last Admin: 09/25/18 16:27 Dose: 0.5 mg - Labs Labs: 09/07/18 05:55 09/07/18 05:55 - Respiratory Exam Respiratory Exam: NORMAL BREATHING PATTERN - Cardiovascular Exam Cardiovascular Exam: REGULAR RHYTHM - GI/Abdominal Exam GI & Abdominal Exam: Normal Bowel Sounds Assessment and Plan - Assessment and Plan (Free Text) Assessment: Mental status changes etiol?? Dementia Pseudodementia??? Depression Hx Seizure activity?? Hx Transient global Amnesia?? HX Paranoid delusions MRI vascular nonspecific Neurology EEG nonspecific Psychiatry Dementia Resperidol Namenda SSRIl?? Pt currently lacks decision making capacity for medical care and needs assistance for financial matters. She would be a vulnerable elderly without assistance Hx Breast Ca Hx Fe deficiency ??elevated CEA Oncology note appreciated UTI ?? urine c/s no growth
--- NOTE | 2018-09-26 22:01 | CP.PCM.PN ---
Subjective - Date & Time of Evaluation Date of Evaluation: 09/26/18 Time of Evaluation: 22:22 - Subjective Subjective: Doing well Objective - Vital Signs/Intake and Output Vital Signs (last 24 hours): Temp Pulse Resp BP Pulse Ox 98 F 78 18 110/64 96 09/26/18 16:40 09/26/18 16:40 09/26/18 16:40 09/26/18 16:40 09/26/18 16:40 - Medications Medications: Current Medications Lorazepam (Ativan) 0.5 mg PO BID PRN PRN Reason: Agitation Memantine (Namenda) 5 mg PO DAILY [facility] Last Admin: 09/26/18 08:21 Dose: 5 mg Montelukast Sodium (Singulair) 10 mg PO HS [facility] Last Admin: 09/26/18 21:15 Dose: 10 mg Risperidone (Risperdal Tab) 0.5 mg PO TID [facility] Last Admin: 09/26/18 16:32 Dose: 0.5 mg - Labs Labs: 09/07/18 05:55 09/07/18 05:55 - Respiratory Exam Respiratory Exam: NORMAL BREATHING PATTERN - Cardiovascular Exam Cardiovascular Exam: REGULAR RHYTHM - GI/Abdominal Exam GI & Abdominal Exam: Normal Bowel Sounds Assessment and Plan - Assessment and Plan (Free Text) Assessment: Mental status changes etiol?? Dementia Pseudodementia??? Depression Hx Seizure activity?? Hx Transient global Amnesia?? HX Paranoid delusions MRI vascular nonspecific Neurology EEG nonspecific Psychiatry Dementia Resperidol Namenda SSRIl?? Pt currently lacks decision making capacity for medical care and needs assistance for financial matters. She would be a vulnerable elderly without assistance Hx Breast Ca Hx Fe deficiency ??elevated CEA Oncology note appreciated UTI ?? urine c/s no growth
--- NOTE | 2018-09-27 19:22 | CP.PCM.PN ---
Subjective - Date & Time of Evaluation Date of Evaluation: 09/27/18 Time of Evaluation: 22:22 - Subjective Subjective: Improved Less agitation Objective - Vital Signs/Intake and Output Vital Signs (last 24 hours): Temp Pulse Resp BP Pulse Ox 97.9 F 80 18 135/75 98 09/27/18 16:23 09/27/18 16:23 09/27/18 16:23 09/27/18 16:23 09/27/18 16:23 - Medications Medications: Current Medications Lorazepam (Ativan) 0.5 mg PO BID PRN PRN Reason: Agitation Memantine (Namenda) 5 mg PO DAILY [facility] Last Admin: 09/27/18 08:20 Dose: 5 mg Montelukast Sodium (Singulair) 10 mg PO HS [facility] Last Admin: 09/26/18 21:15 Dose: 10 mg Risperidone (Risperdal Tab) 0.5 mg PO TID [facility] Last Admin: 09/27/18 17:04 Dose: 0.5 mg - Labs Labs: 09/07/18 05:55 09/07/18 05:55 - Respiratory Exam Respiratory Exam: NORMAL BREATHING PATTERN - Cardiovascular Exam Cardiovascular Exam: REGULAR RHYTHM - GI/Abdominal Exam GI & Abdominal Exam: Normal Bowel Sounds Assessment and Plan - Assessment and Plan (Free Text) Assessment: Mental status changes etiol?? Dementia Pseudodementia??? Depression Hx Seizure activity?? Hx Transient global Amnesia?? HX Paranoid delusions MRI vascular nonspecific Neurology EEG nonspecific Psychiatry Dementia Resperidol Namenda SSRIl?? Pt currently lacks decision making capacity for medical care and needs assistance for financial matters. She would be a vulnerable elderly without assistance Hx Breast Ca Hx Fe deficiency ??elevated CEA Oncology note appreciated UTI ?? urine c/s no growth
--- NOTE | 2018-09-28 19:14 | CP.PCM.PN ---
Subjective - Date & Time of Evaluation Date of Evaluation: 09/28/18 Time of Evaluation: 22:22 - Subjective Subjective: Above noted Objective - Vital Signs/Intake and Output Vital Signs (last 24 hours): Temp Pulse Resp BP Pulse Ox 98.1 F 88 20 134/84 98 09/28/18 16:06 09/28/18 16:06 09/28/18 16:06 09/28/18 16:06 09/28/18 16:06 - Medications Medications: Current Medications Lorazepam (Ativan) 0.5 mg PO BID PRN PRN Reason: Agitation Memantine (Namenda) 5 mg PO DAILY [facility] Last Admin: 09/28/18 08:32 Dose: 5 mg Montelukast Sodium (Singulair) 10 mg PO HS [facility] Last Admin: 09/27/18 21:04 Dose: 10 mg Risperidone (Risperdal Tab) 0.5 mg PO TID [facility] Last Admin: 09/28/18 16:49 Dose: 0.5 mg - Labs Labs: 09/07/18 05:55 09/07/18 05:55 - Respiratory Exam Respiratory Exam: NORMAL BREATHING PATTERN - Cardiovascular Exam Cardiovascular Exam: REGULAR RHYTHM - GI/Abdominal Exam GI & Abdominal Exam: Normal Bowel Sounds Assessment and Plan - Assessment and Plan (Free Text) Assessment: Mental status changes etiol?? Dementia Pseudodementia??? Depression Hx Seizure activity?? Hx Transient global Amnesia?? HX Paranoid delusions MRI vascular nonspecific Neurology EEG nonspecific Psychiatry Dementia Resperidol Namenda SSRIl?? Pt currently lacks decision making capacity for medical care and needs assistance for financial matters. She would be a vulnerable elderly without assistance Hx Breast Ca Hx Fe deficiency ??elevated CEA Oncology note appreciated UTI ?? urine c/s no growth
--- NOTE | 2018-09-29 17:27 | CP.PCM.PN ---
Subjective - Date & Time of Evaluation Date of Evaluation: 09/29/18 Time of Evaluation: 22:22 - Subjective Subjective: Improved Objective - Vital Signs/Intake and Output Vital Signs (last 24 hours): Temp Pulse Resp BP Pulse Ox 98 F 83 20 105/58 L 97 09/29/18 16:18 09/29/18 16:18 09/29/18 16:18 09/29/18 16:18 09/29/18 16:18 - Medications Medications: Current Medications Lorazepam (Ativan) 0.5 mg PO BID PRN PRN Reason: Agitation Memantine (Namenda) 5 mg PO DAILY [facility] Last Admin: 09/29/18 08:39 Dose: 5 mg Montelukast Sodium (Singulair) 10 mg PO HS [facility] Last Admin: 09/28/18 21:09 Dose: 10 mg Risperidone (Risperdal Tab) 0.5 mg PO TID [facility] Last Admin: 09/29/18 16:53 Dose: 0.5 mg - Labs Labs: 09/07/18 05:55 09/07/18 05:55 - Respiratory Exam Respiratory Exam: NORMAL BREATHING PATTERN - Cardiovascular Exam Cardiovascular Exam: REGULAR RHYTHM - GI/Abdominal Exam GI & Abdominal Exam: Normal Bowel Sounds Assessment and Plan - Assessment and Plan (Free Text) Assessment: Mental status changes etiol?? Dementia Pseudodementia??? Depression Hx Seizure activity?? Hx Transient global Amnesia?? HX Paranoid delusions MRI vascular nonspecific Neurology EEG nonspecific Psychiatry Dementia Resperidol Namenda SSRIl?? Pt currently lacks decision making capacity for medical care and needs assistance for financial matters. She would be a vulnerable elderly without assistance Hx Breast Ca Hx Fe deficiency ??elevated CEA Oncology note appreciated UTI ?? urine c/s no growth
--- NOTE | 2018-09-30 22:40 | CP.PCM.PN ---
Subjective - Date & Time of Evaluation Date of Evaluation: 09/30/18 Time of Evaluation: 22:22 - Subjective Subjective: Long d/w close freinds Depression Insomnia Dec oral intake Objective - Vital Signs/Intake and Output Vital Signs (last 24 hours): Temp Pulse Resp BP Pulse Ox 97 F L 76 20 108/63 99 09/30/18 16:59 09/30/18 16:59 09/30/18 16:59 09/30/18 16:59 09/30/18 16:59 - Medications Medications: Current Medications Lorazepam (Ativan) 0.5 mg PO BID PRN PRN Reason: Agitation Memantine (Namenda) 5 mg PO DAILY [facility] Last Admin: 09/30/18 09:29 Dose: 5 mg Montelukast Sodium (Singulair) 10 mg PO HS [facility] Last Admin: 09/30/18 21:18 Dose: 10 mg Risperidone (Risperdal Tab) 0.5 mg PO TID [facility] Last Admin: 09/30/18 16:54 Dose: 0.5 mg - Labs Labs: 09/07/18 05:55 09/07/18 05:55 - Respiratory Exam Respiratory Exam: Wheezes, NORMAL BREATHING PATTERN - Cardiovascular Exam Cardiovascular Exam: REGULAR RHYTHM - GI/Abdominal Exam GI & Abdominal Exam: Normal Bowel Sounds Assessment and Plan - Assessment and Plan (Free Text) Assessment: Mental status changes etiol?? Dementia Pseudodementia??? Depression Hx Seizure activity?? Hx Transient global Amnesia?? HX Paranoid delusions MRI vascular nonspecific Neurology EEG nonspecific Psychiatry Dementia Resperidol Namenda SSRIl?? Reconsult Psych for possble depression Pt currently lacks decision making capacity for medical care and needs assistance for financial matters. She would be a vulnerable elderly without assistance Hx Breast Ca Hx Fe deficiency ??elevated CEA Oncology note appreciated UTI ?? urine c/s no growth
--- NOTE | 2018-10-01 22:13 | CP.PCM.PN ---
Subjective - Date & Time of Evaluation Date of Evaluation: 10/01/18 Time of Evaluation: 22:22 - Subjective Subjective: Doing well Objective - Vital Signs/Intake and Output Vital Signs (last 24 hours): Temp Pulse Resp BP Pulse Ox 97.4 F L 81 20 120/64 98 10/01/18 16:27 10/01/18 16:27 10/01/18 16:27 10/01/18 16:27 10/01/18 16:27 - Medications Medications: Current Medications Lorazepam (Ativan) 0.5 mg PO BID PRN PRN Reason: Agitation Last Admin: 10/01/18 18:48 Dose: 0.5 mg Memantine (Namenda) 5 mg PO DAILY [facility] Last Admin: 10/01/18 08:13 Dose: 5 mg Montelukast Sodium (Singulair) 10 mg PO HS [facility] Last Admin: 10/01/18 21:11 Dose: 10 mg Risperidone (Risperdal Tab) 0.5 mg PO TID [facility] Last Admin: 10/01/18 16:12 Dose: 0.5 mg - Labs Labs: 09/07/18 05:55 09/07/18 05:55 - Respiratory Exam Respiratory Exam: NORMAL BREATHING PATTERN - Cardiovascular Exam Cardiovascular Exam: REGULAR RHYTHM - GI/Abdominal Exam GI & Abdominal Exam: Normal Bowel Sounds Assessment and Plan - Assessment and Plan (Free Text) Assessment: Mental status changes etiol?? Dementia Pseudodementia??? Depression Hx Seizure activity?? Hx Transient global Amnesia?? HX Paranoid delusions MRI vascular nonspecific Neurology EEG nonspecific Psychiatry Dementia Resperidol Namenda SSRIl?? Reconsult Psych for possble depression Pt currently lacks decision making capacity for medical care and needs assistance for financial matters. She would be a vulnerable elderly without assistance Hx Breast Ca Hx Fe deficiency ??elevated CEA Oncology note appreciated UTI ?? urine c/s no growth
--- NOTE | 2018-10-02 16:09 | CP.PCM.PN ---
Subjective - Date & Time of Evaluation Date of Evaluation: 10/02/18 Time of Evaluation: 22:22 - Subjective Subjective: Depressed?? Objective - Vital Signs/Intake and Output Vital Signs (last 24 hours): Temp Pulse Resp BP Pulse Ox 98 F 88 18 128/79 99 10/02/18 16:04 10/02/18 16:04 10/02/18 16:04 10/02/18 16:04 10/02/18 16:04 - Medications Medications: Current Medications Lorazepam (Ativan) 0.5 mg PO BID PRN PRN Reason: Agitation Last Admin: 10/01/18 18:48 Dose: 0.5 mg Memantine (Namenda) 5 mg PO DAILY [facility] Last Admin: 10/02/18 08:26 Dose: 5 mg Montelukast Sodium (Singulair) 10 mg PO HS [facility] Last Admin: 10/01/18 21:11 Dose: 10 mg Risperidone (Risperdal Tab) 0.5 mg PO TID [facility] Last Admin: 10/02/18 12:44 Dose: 0.5 mg - Labs Labs: 09/07/18 05:55 09/07/18 05:55 - Respiratory Exam Respiratory Exam: NORMAL BREATHING PATTERN - Cardiovascular Exam Cardiovascular Exam: REGULAR RHYTHM - GI/Abdominal Exam GI & Abdominal Exam: Normal Bowel Sounds Assessment and Plan - Assessment and Plan (Free Text) Assessment: Mental status changes etiol?? Dementia Pseudodementia??? Depression Hx Seizure activity?? Hx Transient global Amnesia?? HX Paranoid delusions MRI vascular nonspecific Neurology EEG nonspecific Psychiatry Dementia Resperidol Namenda SSRIl?? Reconsult Psych for possble depression Pt currently lacks decision making capacity for medical care and needs assistance for financial matters. She would be a vulnerable elderly without assistance Hx Breast Ca Hx Fe deficiency ??elevated CEA Oncology note appreciated UTI ?? urine c/s no growth
--- NOTE | 2018-10-03 19:06 | CP.PCM.PN ---
Subjective - Date & Time of Evaluation Date of Evaluation: 10/03/18 Time of Evaluation: 22:22 - Subjective Subjective: DOing well No Psych reconsult ? Objective - Vital Signs/Intake and Output Vital Signs (last 24 hours): Temp Pulse Resp BP Pulse Ox 98.3 F 82 20 127/77 97 10/03/18 16:46 10/03/18 16:46 10/03/18 16:46 10/03/18 16:46 10/03/18 17:44 - Medications Medications: Current Medications Lorazepam (Ativan) 0.5 mg PO BID PRN PRN Reason: Agitation Last Admin: 10/02/18 16:13 Dose: 0.5 mg Memantine (Namenda) 5 mg PO DAILY [facility] Last Admin: 10/03/18 08:40 Dose: 5 mg Montelukast Sodium (Singulair) 10 mg PO HS [facility] Last Admin: 10/02/18 21:12 Dose: 10 mg Risperidone (Risperdal Tab) 0.5 mg PO TID [facility] Last Admin: 10/03/18 16:37 Dose: 0.5 mg - Labs Labs: 09/07/18 05:55 09/07/18 05:55 - Respiratory Exam Respiratory Exam: NORMAL BREATHING PATTERN - Cardiovascular Exam Cardiovascular Exam: REGULAR RHYTHM - GI/Abdominal Exam GI & Abdominal Exam: Normal Bowel Sounds Assessment and Plan - Assessment and Plan (Free Text) Assessment: Mental status changes etiol?? Dementia Pseudodementia??? Depression Hx Seizure activity?? Hx Transient global Amnesia?? HX Paranoid delusions MRI vascular nonspecific Neurology EEG nonspecific Psychiatry Dementia Resperidol Namenda SSRIl?? Reconsult Psych for possble depression Pt currently lacks decision making capacity for medical care and needs assistance for financial matters. She would be a vulnerable elderly without assistance Hx Breast Ca Hx Fe deficiency ??elevated CEA Oncology note appreciated UTI ?? urine c/s no growth
--- NOTE | 2018-10-04 07:01 | PQF ---
PROVIDER RESPONSE TEXT: Dementia with behavioral disturbances REVIEWER QUERY TEXT: Conflicting Documentation Clarification Please clarify which type of Dementia should be coded and is it with or without behavioral disturb ances Neurologist with Dementia likely Alzheimers Psych: Major neurocognitive disorder moderate to severe . This is coded to vascular dementia. Please clarify which type of Dementia should be coded and is it with or without behavioral disturb ances A single mention or documentation of multiple diagnoses for the same clinical presentation appears in the record. Please clarify the diagnosis/diagnoses. Please also document if the condition is: -- Confirmed and current -- Confirmed, treated and resolved -- Ruled out -- Other, please specify The patient's Clinical Indicators include: Neuro: AMS, hallucinating, underlying Dementia Psych: Pt reportedly as some episodes of forgetfulness and occasional violent episodes with physical aggression which are getting worse. IMP: major neurocognitive disorder MRI Brain: No acute intracranial abnormality.Mild chronic microangiopathic changes and moderate age-r elated global parenchymal volume loss.Chronic left maxillary sinusitis. Superimposed fluid may repre sent acute sinusitis in the appropriate clinical setting Medications; Namenda, Risperdal, prn Ativan Query created by: Radha Baird on 10/02/2018 1:41 PM Electronically signed by: Michael Cotter MD 10/04/2018 6:58 AM
[2018-10-04] MEDS ORDERED: guaiFENesin DM 200 mg-20 mg/10 ml UD PO PRN (08:34)
--- NOTE | 2018-10-04 17:04 | RAD ---
Date of service: 10/04/2018 PROCEDURE: CHEST RADIOGRAPH, 1 VIEW HISTORY: coughing COMPARISON: 06/13/2008 images only no report available. FINDINGS: LUNGS: Clear. PLEURA: No pneumothorax or pleural fluid seen. CARDIOVASCULAR: No aortic atherosclerotic calcification present. Cardiomegaly-similar. There is a air like density projecting over the left heart-this can be seen with hiatal hernia formation this is not appreciate on the prior study. No lateral views available. OSSEOUS STRUCTURES: No significant abnormalities. VISUALIZED UPPER ABDOMEN: Normal. OTHER FINDINGS: Surgical clips over right axilla not apparent on the prior study IMPRESSION: No typical consolidative pulmonary infiltrate. Probable hiatal hernia. Consider PA and lateral view. Comments: Study marked for PA review .
[2018-10-04] MEDS: Albuterol-Ipratrop 3 mg / 0.5 (3 ml) UD INH SCH (19:44)
--- NOTE | 2018-10-04 20:12 | CP.PCM.PN ---
Subjective - Date & Time of Evaluation Date of Evaluation: 10/04/18 Time of Evaluation: 22:22 - Subjective Subjective: Doing well Objective - Vital Signs/Intake and Output Vital Signs (last 24 hours): Temp Pulse Resp BP Pulse Ox 98.1 F 81 18 111/72 99 10/04/18 16:42 10/04/18 16:42 10/04/18 16:42 10/04/18 16:42 10/04/18 16:42 - Medications Medications: Current Medications Albuterol/Ipratropium (Duoneb 3 Mg/0.5 Mg (3 Ml) Ud) 3 ml INH RQ6 [facility] Last Admin: 10/04/18 19:44 Dose: Not Given Guaifenesin/Dextromethorphan (Robitussin Dm) 10 ml PO Q6 PRN PRN Reason: Cough Last Admin: 10/04/18 17:02 Dose: 10 ml Lorazepam (Ativan) 0.5 mg PO BID PRN PRN Reason: Agitation Last Admin: 10/02/18 16:13 Dose: 0.5 mg Memantine (Namenda) 5 mg PO DAILY [facility] Last Admin: 10/04/18 08:28 Dose: 5 mg Montelukast Sodium (Singulair) 10 mg PO HS [facility] Last Admin: 10/03/18 21:11 Dose: 10 mg Risperidone (Risperdal Tab) 0.5 mg PO TID [facility] Last Admin: 10/04/18 17:02 Dose: 0.5 mg - Labs Labs: 09/07/18 05:55 09/07/18 05:55 - Respiratory Exam Respiratory Exam: NORMAL BREATHING PATTERN - Cardiovascular Exam Cardiovascular Exam: REGULAR RHYTHM - GI/Abdominal Exam GI & Abdominal Exam: Normal Bowel Sounds Assessment and Plan - Assessment and Plan (Free Text) Assessment: Disposition Long d/w SS and family Mental status changes etiol?? Dementia Pseudodementia??? Depression Hx Seizure activity?? Hx Transient global Amnesia?? HX Paranoid delusions MRI vascular nonspecific Neurology EEG nonspecific Psychiatry Dementia Resperidol Namenda SSRIl?? Reconsult Psych for possble depression Pt currently lacks decision making capacity for medical care and needs assistance for financial matters. She would be a vulnerable elderly without assistance Hx Breast Ca Hx Fe deficiency ??elevated CEA Oncology note appreciated UTI ?? urine c/s no growth
[2018-10-05] MEDS: Albuterol-Ipratrop 3 mg / 0.5 (3 ml) UD INH SCH ×4 (01:15→19:04)
--- NOTE | 2018-10-05 10:38 | CP.PCM.CON ---
History of Present Illness - History of Present Illness History of Present Illness: Psychiatry consult follow-up note CC: Dementia HPI: 78 yo female admitted w/ AMS. Patient is currently calm and cooperative, no acute distress. She is only oriented to self, unable to provide date, location or any other relevant history. She denies acute depression/anxiety/AH/VH/paranoia to designer/writer. No SI/HI. Pt denies acute p sychiatric complaints. ALL: PCN Impression: 78 yo female w/ major neurocognitive impairment. Patient is psychiatrically stable for discharge at this time w/ plan for patient to have 24 hour care upon discharge. -Recommend to continue Risperdal 0.5 mg PO TID and Namenda 5 mg PO Daily -Recommend to stop Ativan -Patient will need supervision upon discharge as she is not able to care for herself without assistance Past Patient History - Past Social History Smoking Status: Never Smoked - CARDIAC Hx Cardiac Disorders: No Hx Hypercholesterolemia: No Hx Hypertension: No - PULMONARY Hx Respiratory Disorders: No Hx Tuberculosis: No - NEUROLOGICAL Hx Neurological Disorder: Yes Hx Alzheimer's Disease: Yes Hx Seizures: No - HEENT Hx HEENT Problems: No - RENAL Hx Chronic Kidney Disease: No - ENDOCRINE/METABOLIC Hx Endocrine Disorders: No - HEMATOLOGICAL/ONCOLOGICAL Hx Blood Disorders: No Hx Human Immunodeficiency Virus (HIV): No - INTEGUMENTARY Hx Dermatological Problems: No - MUSCULOSKELETAL/RHEUMATOLOGICAL Hx Musculoskeletal Disorders: No Hx Falls: No - GASTROINTESTINAL Hx Gastrointestinal Disorders: No - GENITOURINARY/GYNECOLOGICAL Hx Genitourinary Disorders: No Hx Sexually Transmitted Disorders: No - PSYCHIATRIC Hx Psychophysiologic Disorder: No Hx Substance Use: No - SURGICAL HISTORY Hx Cholecystectomy: Yes - ANESTHESIA Hx Anesthesia: Yes Hx Anesthesia Reactions: No Hx Malignant Hyperthermia: No Meds Allergies/Adverse Reactions: Allergies Allergy/AdvReac Type Severity Reaction Status Date / Time Penicillins Allergy RASH Verified 11/20/16 05:52 - Medications Medications: Current Medications Albuterol/Ipratropium (Duoneb 3 Mg/0.5 Mg (3 Ml) Ud) 3 ml INH RQ6 [facility] Last Admin: 10/05/18 07:09 Dose: 3 ml Guaifenesin/Dextromethorphan (Robitussin Dm) 10 ml PO Q6 PRN PRN Reason: Cough Last Admin: 10/04/18 17:02 Dose: 10 ml Lorazepam (Ativan) 0.5 mg PO BID PRN PRN Reason: Agitation Last Admin: 10/05/18 03:25 Dose: 0.5 mg Memantine (Namenda) 5 mg PO DAILY [facility] Last Admin: 10/05/18 08:25 Dose: 5 mg Montelukast Sodium (Singulair) 10 mg PO HS [facility] Last Admin: 10/03/18 21:11 Dose: 10 mg Risperidone (Risperdal Tab) 0.5 mg PO TID [facility] Last Admin: 10/05/18 08:25 Dose: 0.5 mg Results - Vital Signs Recent Vital Signs: Last Vital Signs Temp 98.2 F 10/05/18 09:00 Pulse 93 H 10/05/18 09:00 Resp 20 10/05/18 09:00 BP 113/72 10/05/18 09:00 Pulse Ox 97 10/05/18 09:00 - Labs Result Diagrams: 09/07/18 05:55 09/07/18 05:55
[2018-10-05 12:49] VITALS: RESP 20
--- NOTE | 2018-10-05 13:46 | PQF ---
PROVIDER RESPONSE TEXT: As per neurology and psychiatry REVIEWER QUERY TEXT: Dementia Type and Associated Features Please clarify VASCULAR DEMENTIA versus ALZHEIMERS DEMENTIA Previous query response Dementia with Behavioral Disturbance Dementia is documented in the Medical Record. Please specify any associated features and the type Such as: -- Alzheimer?s -- Vascular -- Other, please specify The patient's Clinical Indicators include: Neurology: Alzheimer's Dementia Psych: major neurocognitive disorder which codes to Vascular Dementia Query created by: Radha Baird on 10/04/2018 12:29 PM Electronically signed by: Michael Cotter MD 10/05/2018 1:43 PM
[2018-10-05 16:12] VITALS: TEMP 98.1
--- NOTE | 2018-10-05 20:58 | CP.PCM.PN ---
Subjective - Date & Time of Evaluation Date of Evaluation: 10/05/18 Time of Evaluation: 22:22 - Subjective Subjective: Psych note apprecited Objective - Vital Signs/Intake and Output Vital Signs (last 24 hours): Temp Pulse Resp BP Pulse Ox 98.1 F 90 20 98/60 L 99 10/05/18 16:11 10/05/18 16:11 10/05/18 16:11 10/05/18 16:11 10/05/18 16:11 - Medications Medications: Current Medications Acetaminophen (Tylenol 325mg Tab) 650 mg PO ONCE ONE Stop: 10/05/18 20:49 Albuterol/Ipratropium (Duoneb 3 Mg/0.5 Mg (3 Ml) Ud) 3 ml INH RQ6 [facility] Last Admin: 10/05/18 19:04 Dose: 3 ml Guaifenesin/Dextromethorphan (Robitussin Dm) 10 ml PO Q6 PRN PRN Reason: Cough Last Admin: 10/04/18 17:02 Dose: 10 ml Lorazepam (Ativan) 0.5 mg PO BID PRN PRN Reason: Agitation Last Admin: 10/05/18 03:25 Dose: 0.5 mg Memantine (Namenda) 5 mg PO DAILY [facility] Last Admin: 10/05/18 08:25 Dose: 5 mg Montelukast Sodium (Singulair) 10 mg PO HS [facility] Last Admin: 10/03/18 21:11 Dose: 10 mg Risperidone (Risperdal Tab) 0.5 mg PO TID [facility] Last Admin: 10/05/18 16:10 Dose: 0.5 mg - Labs Labs: 09/07/18 05:55 09/07/18 05:55 - Respiratory Exam Respiratory Exam: NORMAL BREATHING PATTERN - Cardiovascular Exam Cardiovascular Exam: REGULAR RHYTHM - GI/Abdominal Exam GI & Abdominal Exam: Normal Bowel Sounds Assessment and Plan - Assessment and Plan (Free Text) Assessment: Mental status changes etiol?? Dementia Pseudodementia??? Depression Hx Seizure activity?? Hx Transient global Amnesia?? HX Paranoid delusions MRI vascular nonspecific Neurology EEG nonspecific Psychiatry Dementia Resperidol Namenda SSRIl?? Reconsult Psych for possble depression Pt currently lacks decision making capacity for medical care and needs assistance for financial matters. She would be a vulnerable elderly without assistance Hx Breast Ca Hx Fe deficiency ??elevated CEA Oncology note appreciated UTI ?? urine c/s no growth
[2018-10-06] MEDS: Albuterol-Ipratrop 3 mg / 0.5 (3 ml) UD INH SCH ×2 (01:25→07:12)
[2018-10-06 08:17] VITALS: BP 119/73; PULSE 85; O2SAT 94
--- NOTE | 2018-10-06 12:47 | CP.PCM.PCO ---
Assessment/Plan - Assessment/Plan Assessment (Free Text): Pt stable, in no distress. staker surveying at bedside to take pt home. Per Dr. Navarro and SW, arrangements have been made for pt to be with 24 hrs home care aide. Pt cleared by psych for d/c with 24 hr care. Pt cleared by Dr. Navarro for d/c, Rx given
--- NOTE | 2018-10-06 18:02 | CP.PCM.PN ---
Subjective - Date & Time of Evaluation Date of Evaluation: 10/06/18 Time of Evaluation: 22:22 - Subjective Subjective: Above noted Objective - Vital Signs/Intake and Output Vital Signs (last 24 hours): Temp Pulse Resp BP Pulse Ox 98.1 F 85 20 119/73 94 L 10/06/18 08:17 10/06/18 08:17 10/06/18 08:17 10/06/18 08:17 10/06/18 08:17 - Labs Labs: 09/07/18 05:55 09/07/18 05:55 - Respiratory Exam Respiratory Exam: NORMAL BREATHING PATTERN - Cardiovascular Exam Cardiovascular Exam: Tachycardia, REGULAR RHYTHM - GI/Abdominal Exam GI & Abdominal Exam: Normal Bowel Sounds Assessment and Plan - Assessment and Plan (Free Text) Assessment: Mental status changes etiol?? Dementia Pseudodementia??? Depression Hx Seizure activity?? Hx Transient global Amnesia?? HX Paranoid delusions MRI vascular nonspecific Neurology EEG nonspecific Psychiatry Dementia Resperidol Namenda SSRIl?? Reconsult Psych for possble depression Pt currently lacks decision making capacity for medical care and needs assistance for financial matters. She would be a vulnerable elderly without assistance Hx Breast Ca Hx Fe deficiency ??elevated CEA Oncology note appreciated UTI ?? urine c/s no growth
== END 2018-10-06 13:06 | disposition home health service (06) | DRG 884 ==
LOC: H.ER 10:31 → H.ERHOLD 11:13 → H.MEDSURG1 20:38 → OBSVTOIN 09-07 13:26 → H.MEDSURG1 09-07 17:26
PROVIDERS: ADMIT Family Medicine Geriatric Medicine; ATTEND Family Medicine Geriatric Medicine
DX: F01.51 Vascular dementia, unspecified severity, with behavioral disturbance (principal); F02.81 Dementia in other diseases classified elsewhere, unspecified severity, with behavioral disturbance; G30.9 Alzheimer's disease, unspecified; Z85.3 Personal history of malignant neoplasm of breast; G47.00 Insomnia, unspecified; Z90.49 Acquired absence of other specified parts of digestive tract; R45.6 Violent behavior